=== PATIENT | female | born 1955 | race Caucasian/White ===

== ENCOUNTER 2017-11-29 10:32 | Inpatient (IN) | payer BC ==
[2017-11-29] MEDS ORDERED: Acetaminophen TAB* 325 MG PO PRN (13:24)
[2017-11-29] MEDS ORDERED: Senna TAB PO PRN (13:24)
[2017-11-29] MEDS ORDERED: Magnesium Hydroxide LIQ* 30 ML UDC PO PRN (13:24)
[2017-11-29] MEDS ORDERED: Acetaminop/Codeine 30 MG TAB* 1 TAB (300 MG/30 MG) PO PRN (13:33)
[2017-11-29] MEDS: Warfarin TAB(*) 3 MG PO SCH (17:12)
--- NOTE | 2017-11-29 19:00 | HP ---
ADMISSION HISTORY AND PHYSICAL: DATE OF ADMISSION: 11/29/17 REASON FOR ADMISSION: The patient is status post drainage of an intracranial arachnoid cyst. HISTORY OF ILLNESS: Katerine Gonzalez is a 62-year-old female. She has a medical history significant for breast cancer, which was diagnosed 20 years ago. She had a right mastectomy as a result. Apparently, during that time, she also developed a DVT and has been on chronic Coumadin therapy ever since. The patient reports that she had roughly a year and a half of balance difficulties. The patient never saw a doctor for it. Her brother called her in September of this year. He felt like her speech was slurred and advised her to see her doctor. The patient went to her primary care provider who ordered an MRI of her brain. They had a small focus of elevated FLAIR signal within the left frontal foster radiata, which was new. The patient was referred to Dr. Bailey. Dr. Bailey sent her to a neurosurgeon in [place]. She had a large midline cerebellar arachnoid cyst. She saw the physician in [place], Dr. Liban Grace. It was decided that the cyst should be drained. The patient was admitted to [facility] on November 23. She underwent a suboccipital craniotomy with a fenestration of the arachnoid cyst. Postoperatively, she had severe headaches, but this gradually improved. She worked with Physical Therapy. Her balance disorder was getting better, but she was felt to have physical therapy, speech therapy and occupational therapy needs. She is now being admitted for inpatient rehab so that she may return to independent living. PAST MEDICAL HISTORY: Significant for the aforementioned breast cancer. Right mastectomy with LN dissection. She had brain mets from the breast cancer, and had a previous craniotomy with removal of mets. DVT. 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 Bone marrow transplant CURRENT MEDICATIONS: Include: 1. Lovenox. 2. Coumadin. 3. She is on Tylenol with Codeine for headaches. 4. Tylenol. ALLERGIES: To PENICILLIN, although it is unclear what the allergic reaction is. SOCIAL HISTORY: She is a nonsmoker, nondrinker. She lives by herself in a ranch style house with 3 steps to enter. Her laundry is on the basement floor. She was completely independent prior to admission, although she was using a walker to walk long distances because of her balance difficulties. 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 PHYSICAL EXAMINATION VITAL SIGNS: The patient's temperature is 97.5, blood pressure is 114/73, pulse 89, respirations 16. HEENT: She has a wound on the back of her head, which appears to be clean, NECK: Supple. LUNGS: Sound clear to auscultation bilaterally. HEART: Sounds were regular. S1, and S2 were audible. ABDOMEN: Soft and nontender. EXTREMITIES: Peripheral pulses are intact. NEUROLOGIC: She is awake, alert, oriented. She has a left footdrop, which known predates her surgery or illness. Muscle strength otherwise is 5/5. Her finger-to- nose testing, she was able to do quite well. The patient's speech was slightly slurred, but she was able to get her thoughts across without any difficulty. FUNCTIONAL EXAM: The patient transfers with contact guard. ASSESSMENT: Status post drainage of a cerebellar arachnoid cyst. PLAN: Integrate her into a comprehensive and therapeutic rehab program with the following goals: 1. Physical Therapy will work with the patient, they are going to work on functional transfer training and ambulation training with a walker. 2. Occupational Therapy will see the patient, work on her activities of daily living including toileting and toilet transfers. 3. Speech Therapy will see the patient, they are going to work on her speech difficulties as well as her swallowing. For now, we will continue the recommendations of a mechanical soft diet with thin liquids. 4. Coumadin for DVT prophylaxis. 5. Tylenol No.3 for headaches. 6. Her bowels will be regulated. 7. immigration services officer will be closely involved to make sure that any services and equipment that the patient requires are in place prior to discharge. 8. Family training as appropriate. 9. Home with appropriate services. ESTIMATED LENGTH OF STAY: Is 7 to 10 days. [id number]/[facility] #: [id number] [place]OLA
[2017-11-29] MEDS: Docusate CAP* 100 MG PO SCH (19:49)
[2017-11-29] MEDS: Enoxaparin(*) 30 MG/0.3 ML SYR SUBCUT SCH (19:50)
[2017-11-30 06:49] LABS: ABS Basophils 0.1 10^3/ul (0-0.2); ABS Eosinophils 0.5 10^3/ul (0-0.6); ABS Lymphocytes 1.8 10^3/ul (1.0-4.8); ABS Monocytes 0.8 10^3/ul (0-0.8); ABS Neutrophils 5.6 10^3/ul (1.5-7.7); ABS Nucleated RBC 0 10^3/ul; Eosinophil % 5.9 % (0-6); Hematocrit 35 % (35-47); Lymphocyte % 20.2 % (25-47); Mean Corpuscular HGB Conc 34 g/dl (31-36); Mean Corpuscular Hemoglobin 32 pg (27-31); Mean Corpuscular Volume 93 fL (80-97); Mean Platelet Volume 6.7 um3 (7.4-10.4); Nucleated Red Blood Cells % 0.1; Platelet Count 356 10^3/ul (150-450); Red Blood Count 3.77 10^6/ul (4.0-5.4); Red Cell Distribution Width 14 % (10.5-15); White Blood Count 8.8 10^3/ul (3.5-10.8)
[2017-11-30] MEDS: Enoxaparin(*) 30 MG/0.3 ML SYR SUBCUT SCH ×2 (08:16→20:55)
[2017-11-30] MEDS: Docusate CAP* 100 MG PO SCH ×2 (08:16→20:54)
--- NOTE | 2017-11-30 12:41 | PMRUTEAM ---
PMRU: Team Meeting Current Status: Nursing: Current Status Skin Deviations [Generalized] Rash Skin Deviations [Midline Neck] Incision Skin Deviation Description [ unchanged Generalized] Skin Deviation Description [ hair was sewn into the incision with suturing. Midline Neck] Drain Type [Midline Neck] None Bladder Current Status continent walking to the bathroom with walker and 1 assist Bowel Current Status BM medication, walking to the bathroom with walker and 1 assist Nutrition Current Status meats nutritional needs , aspiration precautions in place. mechanicaly ground . Medication Current Status complient Physical Therapy: Current Status Bed Mobility Assistance Independent Transfer Moblility Assistance contact guard Ambulation Assistance contact guard with rolling walker 200ft OCCUPATIONAL THERAPY: CURRENT STATUS - upper body dressing min A; lower body dressing min A; bathing min A; toileting min A; toilet transfer contact guard; shower transfer contact guard; eating independent. SPEECH THERAPY: Mild dysarthia and dysphagia on mechanical ground and thin liquids. Rec Therapy: Current Status Summary of Assessment and Pt. recently admitted, was in the room with her Clinical Impression cousin. RT services introduced. Pt. spoke of interests/hobbies and identified with involvement in them prior to admission. Pt. was open to activities on the unit and asked for word jumble puzzles which were provided to her. Treatment Goals Pt. will engage in leisure activities while on the unit. Treatment Plan Provide RT services and encourage involvement. Social Work: Current Status Discharge Plan return home with home care svs and family support Potential for Family Training Mahi OCAMPO's cousins are assisting her Anticipated Discharge Home Destination Discharge With Home care svs and family support Goals: Nursing: Goals Bladder Goal independent Bowel Goal independent Nutrition Goal regular texture diet. independent with preparation with family support- cousin. Medication Goal independent @ home. PHYSICAL THERAPY GOALS: independent bed mobility, transfers and ambulation using rolling walker 300ft. Up/down flight of stairs with 1 rail. OCCUPATIONAL THERAPY GOALS: independent dressing, toileting, bathing, showering without adaptive equipment. Speech: Goals Speech Goal 1 Swallowing Goal 1 Comments Long-Term Goal: Patient will tolerate least restrictive diet consistencies w/ no stasis or clinical s/s aspiration Short Term Goals: 1) Pt will use compensatory strategies to tolerateregular diet consistency w/ no difficulty or clinical s/s aspiration. 2) Pt will use compensatory strategies to tolerate mechanical ground consistency w/ no difficulty or clinical s/s aspiration. 3) Pt will use compensatory strategies to tolerate thin liquid w/ no clinical s/s aspiration. Social Work: Goals Discharge Plan return home with home care svs and family support Potential for Family Training Mahi OCAMPO's cousins are assisting her Anticipated Discharge Home Destination Discharge With Home care svs and family support Care Plan: Care Plan DVT Prophylaxis- Improve/Maintain Start: 11/29/17 13:23 Freq: DAILY@1200 Status: Active Target: Protocol: Activity Type Activity Date Activity User E-Sign Co-Sign Detail Recorded Client Recorded Date Recorded By Document 11/30/17 08:00 [id number] 11/30/17 11:12 [id number] 11/30/17 08:00 PMRU Outcome: DVT Prophylaxis Outcome/Goals Remains Free of DVT Complies with DVT Prophylaxis /Treatment Progression Toward Outcome/Goals Progressing Education-Improve/Maintain Start: 11/29/17 13:23 Freq: DAILY@1200 Status: Active Target: Protocol: Activity Type Activity Date Activity User E-Sign Co-Sign Detail Recorded Client Recorded Date Recorded By Document 11/30/17 08:00 [id number] 11/30/17 11:12 [id number] 11/30/17 08:00 PMRU Outcome: Education Outcome/Goals Demonstrate/ Verbalize Understanding of Written Discharge Instructions Demonstrates Skills Progression Toward Outcome/Goals Progressing /GI-Improve/Maintain Start: 11/29/17 13:23 Freq: DAILY@1200 Status: Active Target: Protocol: Activity Type Activity Date Activity User E-Sign Co-Sign Detail Recorded Client Recorded Date Recorded By Document 11/30/17 08:00 [id number] 11/30/17 11:12 [id number] 11/30/17 08:00 PMRU Outcome: Genitourinary/ Gastrointestinal Genitourinary- Outcome/Goals Maintain/ Achieve Urinary Continence Maintain/ Achieve Adequate Urinary Output Gastrointestinal-Outcome/Goals Maintain/ Achieve Bowel Regularity in Accordance with Pt's Baseline Remain Free of Emesis Progression Toward Outcome/Goals - Progressing Medication Administration Start: 11/29/17 13:23 Freq: DAILY@1200 Status: Active Target: Protocol: Activity Type Activity Date Activity User E-Sign Co-Sign Detail Recorded Client Recorded Date Recorded By Document 11/30/17 08:00 [id number] 11/30/17 11:12 [id number] 11/30/17 08:00 PMRU Outcome: Medication Administration Assess Patient Knowledge/Teach Med Yes Education for all Meds Outcome/Goals Patient Independent with Medication Administration at Home Progression Towards Outcome/Goals Progressing Is Patient Going Home on Lovenox? No Neurological- Improve/Maintain Start: 11/29/17 13:23 Freq: DAILY@1200 Status: Active Target: Protocol: Activity Type Activity Date Activity User E-Sign Co-Sign Detail Recorded Client Recorded Date Recorded By Document 11/30/17 08:00 [id number] 11/30/17 11:12 [id number] 11/30/17 08:00 PMRU Outcome: Neurological Weakness/Aphasia Weakness Outcome/Goals Improve Neurological Status Progression Toward Outcome/Goals Progressing Pain/Comfort- Improve/Maintain Start: 11/29/17 13:23 Freq: DAILY@1200 Status: Active Target: Protocol: Activity Type Activity Date Activity User E-Sign Co-Sign Detail Recorded Client Recorded Date Recorded By Document 11/30/17 08:00 [id number] [email or web address] 11/30/17 11:12 [id number] 11/30/17 08:00 PMRU Outcome: Pain/Comfort Outcome/Goals Demonstrates Knowledge and Use of Available Comfort Measures Progression Toward Outcome/Goals Progressing Safety- Improve/Maintain Start: 11/29/17 13:23 Freq: DAILY@1200 Status: Active Target: Protocol: Activity Type Activity Date Activity User E-Sign Co-Sign Detail Recorded Client Recorded Date Recorded By Document 11/30/17 08:00 [id number] 11/30/17 11:12 [id number] 11/30/17 08:00 PMRU Outcome: Safety Outcome/Goals Remain Free of Injury or Harm Cooperates with Safety Measures for Least Restrictive Environment Progression Toward Outcome/Goals Progressing Skin- Improve/Maintain Start: 11/29/17 13:23 Freq: DAILY@1200 Status: Active Target: Protocol: Activity Type Activity Date Activity User E-Sign Co-Sign Detail Recorded Client Recorded Date Recorded By Document 11/30/17 08:00 [id number] 11/30/17 11:12 [id number] 11/30/17 08:00 PMRU Outcome: Skin Skin Risk Level Medium Outcome/Goals Maintain/ Improve Skin Intergrity Progression Toward Outcome/Goals Progressing Medicine Note: Length of Stay: [1 week] Anticipated Discharge Destination: Home Tentative Discharge Date: [12/07/17] Discharged to: [home]
--- NOTE | 2017-11-30 13:27 | PN ---
Progress Note Date of Service: 11/30/17 Note: MARAH GOODE was visited. Nursing and therapy notes read and reviewed. Discussed in team meeting for interdisciplinary plan of care. No chest pain, shortness of breath or abdominal pain. Nursing and OT concerned that hair is within suture line. Rash she has had last 5 days or so does not bother her and she thinks it is continuing to improve. Current Medications: Active Medications Generic Name Dose Route Start Last Admin Trade Name Freq PRN Reason Stop Dose Admin Acetaminophen 650 mg 11/29/17 13:24 Tylenol Tab* PO Q6H PRN FEVER/PAIN Acetaminophen/Codeine Phosphate 1 tab 11/29/17 13:33 Tylenol/Codeine 30 Mg Tab* PO Q6H PRN HEADACHE/PAIN Chlorpheniramine Maleate 4 mg 11/29/17 13:31 Chlortrimeton Tab* PO Q6H PRN Allergy Symptoms Docusate Sodium 100 mg 11/29/17 21:00 11/30/17 08:16 Colace Cap* PO 100 mg BID GIULIANA Administration Enoxaparin Sodium 30 mg 11/29/17 21:00 11/30/17 08:16 Lovenox(*) SUBCUT 30 mg Q12H GIULIANA Administration Magnesium Hydroxide 30 ml 11/29/17 13:24 Milk Of Magnesia Liq* PO Q6H PRN CONSTIPATION Senna 2 tab 11/29/17 13:24 Senokot Tab* PO BEDTIME PRN CONSTIPATION Warfarin Sodium 3 mg 11/29/17 17:00 11/29/17 17:12 Coumadin Tab(*) PO 3 mg DAILY@1700 GIULIANA Administration Protocol Vital Signs: Vital Signs Temp Pulse Resp BP Pulse Ox 98.7 F 97 20 112/63 98 11/30/17 06:25 11/30/17 06:25 11/30/17 08:00 11/30/17 06:25 11/30/17 08:00 Lab Results: Laboratory Results - last 24 hr 11/30/17 11/30/17 11/30/17 06:31 06:31 06:31 WBC 8.8 RBC 3.77 L Hgb 12.0 Hct 35 MCV 93 MCH 32 H MCHC 34 RDW 14 Plt Count 356 MPV 6.7 L Neut % (Auto) 64.3 Lymph % (Auto) 20.2 L [place] % (Auto) 9.0 H Eos % (Auto) 5.9 Baso % (Auto) 0.6 Absolute Neuts (auto) 5.6 Absolute Lymphs (auto) 1.8 Absolute Monos (auto) 0.8 Absolute Eos (auto) 0.5 Absolute Basos (auto) 0.1 Absolute Nucleated RBC 0 Nucleated RBC % 0.1 INR (Anticoag Therapy) 1.00 Sodium 137 L Potassium 4.2 Chloride 100 L Carbon Dioxide 32 Anion Gap 5 BUN 26 H Creatinine 0.73 Est GFR ( Amer) 104.2 Est GFR (Non-Af Amer) 81.0 BUN/Creatinine Ratio 35.6 H Glucose 96 Calcium 9.1 Total Bilirubin 0.40 AST 16 ALT 28 Alkaline Phosphatase 85 Total Protein 6.3 L Albumin 3.5 Globulin 2.8 Albumin/Globulin Ratio 1.3 Exam: GEN: no acute distress. alert and appropriate SKIN: diffuse dull macular rash with coalesced patches on back, axilla, groin. Incision on posterior head/neck is clean, dry and intact. It appear that incision includes some of the roots of hair. LUNGS: clear to auscultation bilaterally CV: regular rate and rhythm ABD: + bowel sounds, soft, non-tender, non-distended EXT: no edema NEURO: motor 5/5 bue and ble except 4/5 left dorsiflexion (chronic) Assessment/Plan: 62yo woman s/p suboccipital craniotomy with fenestration of cerebellar arachnoid cyst with subsequent impaired balance, dysarthria and dysphagia #s/p suboccipital craniotomy: f/u with neurosurgery. PT/OT/speech #h/o DVT on chronic coumadin: lovenox 30mg bid until INR therapeutic. On home dose since d/c. INR daily. #Rash present on admission: This looks like a drug rash. It appears to be improving with time. follow clinically. #Headaches: has tylenol and tylenol #3 prn #Advanced directives: full code #Estimated LOS: met with team today. Tentative discharge 12/07/17. 11/30/17 13:27
[2017-11-30] MEDS: Warfarin TAB(*) 3 MG PO SCH (16:52)
[2017-11-30] MEDS: Chlorpheniramine Maleate TAB* 4 MG PO PRN (19:22)
[2017-11-30] MEDS: Hydrocortisone 1% CREAM* 30 GM TUBE TOPICAL PRN (20:07)
[2017-12-01] MEDS: Chlorpheniramine Maleate TAB* 4 MG PO PRN (02:49)
[2017-12-01] MEDS: Hydrocortisone 1% CREAM* 30 GM TUBE TOPICAL PRN (02:49)
[2017-12-01 06:42] LABS: INR 1.09 (0.77-1.02)
[2017-12-01 07:47] LABS: ABS Basophils 0.1 10^3/ul (0-0.2); ABS Eosinophils 0.2 10^3/ul (0-0.6); ABS Lymphocytes 0.3 10^3/ul (1.0-4.8); ABS Monocytes 0.3 10^3/ul (0-0.8); ABS Neutrophils 18.3 10^3/ul (1.5-7.7); ABS Nucleated RBC 0 10^3/ul; Eosinophil % 1.2 % (0-6); Hematocrit 43 % (35-47); Hemoglobin 14.5 g/dl (12.0-16.0); Lymphocyte % 1.5 % (25-47); Mean Corpuscular HGB Conc 34 g/dl (31-36); Mean Corpuscular Hemoglobin 32 pg (27-31); Mean Corpuscular Volume 93 fL (80-97); Mean Platelet Volume 7.5 um3 (7.4-10.4); Nucleated Red Blood Cells % 0; Platelet Count 408 10^3/ul (150-450); Red Blood Count 4.58 10^6/ul (4.0-5.4); Red Cell Distribution Width 14 % (10.5-15); White Blood Count 19.2 10^3/ul (3.5-10.8)
--- NOTE | 2017-12-01 08:09 | RAD ---
INDICATION: Fever COMPARISON: Most recent comparison chest x-rays dated February 04, 2017 TECHNIQUE: PA and lateral views of the chest were obtained. FINDINGS: Postsurgical changes include right mastectomy and surgical clips overlying the right axilla The heart and mediastinum are normal in size and contour. Similar to the prior chest x-ray there is the appearance of chronic obstructive pulmonary disease. The lungs are otherwise grossly clear. There is no evidence of large pleural effusion. Visualized bones are normal for the patient's age. There is no radiographic evidence of free air beneath the diaphragm IMPRESSION: No radiographic evidence of acute cardiopulmonary disease.
[2017-12-01 08:13] LABS: EGFR Non-African American 52.7 (>60)
[2017-12-01] MEDS ORDERED: NS 0.9% 1000 ML* 2,000 ML IV ONE (08:16)
[2017-12-01] MEDS ORDERED: Vancomycin(*) 1,500 MG in NS 0.9% 250 ML* 250 ML IVPB ONE (08:21)
[2017-12-01] MEDS ORDERED: diPHENhydraMINE PO* 25 MG PO PRN (08:47)
--- NOTE | 2017-12-01 08:49 | PN ---
Progress Note Date of Service: 12/01/17 Note: KATERINE GOODE was visited. Nursing notes read and reviewed. I was called a little after 7am this morning to inform me that overnight Katerine had a fever, was intermittently tachycardic and may have had a 3 second seizure while on the commode urinating. Additional work-up was ordered and the hospitalist service was consulted. The patient herself feels "better" right now that earlier. She was dizzy getting back to bed after going to CXR. She offers no complaints at this moment. Last night her rash became itchy and felt better with topical hydrocortisone. No chest pain, shortness of breath or abdominal pain. She has not been drinking much. Current Medications: Active Medications Generic Name Dose Route Start Last Admin Trade Name Freq PRN Reason Stop Dose Admin Acetaminophen 650 mg 11/29/17 13:24 12/01/17 05:23 Tylenol Tab* PO 650 mg Q6H PRN Administration FEVER/PAIN Acetaminophen/Codeine Phosphate 1 tab 11/29/17 13:33 11/30/17 14:09 Tylenol/Codeine 30 Mg Tab* PO 1 tab Q6H PRN Administration HEADACHE/PAIN Diphenhydramine HCl 25 mg 12/01/17 08:47 Benadryl Po* PO Q4H PRN itching rash Docusate Sodium 100 mg 11/29/17 21:00 11/30/17 20:54 Colace Cap* PO 100 mg BID GIULIANA Administration Enoxaparin Sodium 30 mg 11/29/17 21:00 11/30/17 20:55 Lovenox(*) SUBCUT 30 mg Q12H GIULIANA Administration Hydrocortisone 1 applic 11/30/17 19:30 12/01/17 02:49 Hytone Cream 1%* TOPICAL 1 applic QID PRN Administration itching rash Sodium Chloride 2,000 mls @ 1,000 mls/hr 12/01/17 08:16 Ns 0.9% 1000 Ml* IV 12/01/17 10:15 .PER RATE ONE Ceftriaxone Sodium 1 gm/ 50 mls @ 200 mls/hr 12/01/17 09:00 Sodium Chloride IVPB Q24H GIULIANA Vancomycin HCl 1,500 mg/ 250 mls @ 166.667 mls/hr 12/01/17 08:21 Sodium Chloride IVPB 12/01/17 09:50 ONCE ONE Magnesium Hydroxide 30 ml 11/29/17 13:24 Milk Of Magnesia Liq* PO Q6H PRN CONSTIPATION Senna 2 tab 11/29/17 13:24 Senokot Tab* PO BEDTIME PRN CONSTIPATION Warfarin Sodium 3 mg 11/29/17 17:00 11/30/17 16:52 Coumadin Tab(*) PO 3 mg DAILY@1700 GIULIANA Administration Protocol Vital Signs: Vital Signs Temp Pulse Resp BP Pulse Ox 100.1 F 85 20 106/68 97 12/01/17 06:05 12/01/17 05:30 12/01/17 06:05 12/01/17 05:04 12/01/17 05:04 Orthostatic vital signs this morning: supine 106/67 and 99; sitting 94/64 and 111; standing 63/33 and 174 Lab Results: Laboratory Results - last 24 hr 12/01/17 12/01/17 12/01/17 06:17 06:17 07:39 WBC 19.2 H RBC 4.58 Hgb 14.5 Hct 43 MCV 93 MCH 32 H MCHC 34 RDW 14 Plt Count 408 MPV 7.5 Neut % (Auto) 95.5 H Lymph % (Auto) 1.5 L [place] % (Auto) 1.5 Eos % (Auto) 1.2 Baso % (Auto) 0.3 Absolute Neuts (auto) 18.3 H Absolute Lymphs (auto) 0.3 L Absolute Monos (auto) 0.3 Absolute Eos (auto) 0.2 Absolute Basos (auto) 0.1 Absolute Nucleated RBC 0 Nucleated RBC % 0 INR (Anticoag Therapy) 1.09 H Sodium 130 L Potassium 4.3 Chloride 97 L Carbon Dioxide 18 L Anion Gap 15 H BUN 41 H Creatinine 1.06 H Est GFR ( Amer) 67.8 Est GFR (Non-Af Amer) 52.7 BUN/Creatinine Ratio 38.7 H Glucose 174 H Lactic Acid Calcium 8.6 Total Bilirubin 0.50 AST 19 ALT 23 Alkaline Phosphatase 84 Total Protein 6.2 L Albumin 3.4 Globulin 2.8 Albumin/Globulin Ratio 1.2 12/01/17 07:39 WBC RBC Hgb Hct MCV MCH MCHC RDW Plt Count MPV Neut % (Auto) Lymph % (Auto) [place] % (Auto) Eos % (Auto) Baso % (Auto) Absolute Neuts (auto) Absolute Lymphs (auto) Absolute Monos (auto) Absolute Eos (auto) Absolute Basos (auto) Absolute Nucleated RBC Nucleated RBC % INR (Anticoag Therapy) Sodium Potassium Chloride Carbon Dioxide Anion Gap BUN Creatinine Est GFR ( Amer) Est GFR (Non-Af Amer) BUN/Creatinine Ratio Glucose Lactic Acid 4.2 H* Calcium Total Bilirubin AST ALT Alkaline Phosphatase Total Protein Albumin Globulin Albumin/Globulin Ratio Exam: GEN: no acute distress. alert and appropriate SKIN: diffuse erythematous macular rash with coalesced patches on back which is higher up and more diffuse than yesterday also including axilla, arms, legs groin and abdomen. It is a brighter red than yesterday and the day before as well. Incision on posterior head/neck is clean, dry and intact. LUNGS: clear to auscultation bilaterally CV: tachy in 110's and regular rhythm ABD: + bowel sounds, soft, non-tender, non-distended EXT: no edema NEURO: motor 5/5 bue and ble except 4/5 left dorsiflexion (chronic) Chest x-ray 12/01/17 - no acute pulmonary findings EKG 12/01/17 - normal sinus rhythm Assessment/Plan: 62yo woman s/p suboccipital craniotomy with fenestration of cerebellar arachnoid cyst with subsequent impaired balance, dysarthria and dysphagia. Today she appears to have sepsis. #Sepsis: The hospitalist service has already ordered IV antibiotic and IVF. Blood cultures drawn x2. No urine has been collected yet. She will need closer monitoring. #s/p suboccipital craniotomy: f/u with neurosurgery. PT/OT/speech will need to be reordered when she is medically stable and not showing this degree of orthostasis. #h/o DVT on chronic coumadin: lovenox 30mg bid until INR therapeutic. On home dose of coumadin since d/c from [place]. INR daily. #Rash present on admission: This looks like a drug rash but worse today. I changed the antihistamine to benadryl. Hydrocortisone prn. #Headaches: has tylenol and tylenol #3 prn #Advanced directives: full code #Dispo: admit to hospitalist service in hospital. 12/01/17 09:04
[2017-12-01] MEDS ORDERED: cefTRIAXone(*) 1 GM in NS 0.9% 50 ML* 50 ML IVPB SCH (09:00)
[2017-12-01] MEDS: Docusate CAP* 100 MG PO SCH (10:02)
[2017-12-01] MEDS: Enoxaparin(*) 30 MG/0.3 ML SYR SUBCUT SCH (10:02)
[2017-12-01 10:13] VITALS: BP 106/67
--- NOTE | 2017-12-01 10:34 | DS ---
REHABILITATION DISCHARGE: DATE OF ADMISSION: 11/29/17 DATE OF DISCHARGE: 12/01/17 REASON FOR ADMISSION: Status post suboccipital craniotomy and fenestration of intracranial arachnoid cyst. HISTORY OF PRESENT ILLNESS: For details of her acute hospitalization leading up to her admission, please see the note dictated by Dr. Newby on 11/29/17. HOSPITAL COURSE: During her time on the [facility], initially she did well in her stay of rehabilitation. Her diet was put on mechanical soft with thin liquids. She seemed to tolerate this well. 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 While urinating on the bedside commode, she had 3 seconds of decreased level of consciousness with questionable seizure. She reported having a seizure 20yrs ago after her diagnosis of breast cancer with a brain metastasis but not being on any chronic anti-seizure medication. Orthostatics were positive today. With standing her SBP was in the 60's and her HR 170's. She was evaluated for sepsis and her lactic acid level was 4.2. White count was up to 19 where the previous day was 8.8. Chest x-ray was negative for an acute process. Blood cultures were drawn. Urinalysis was ordered but not yet collected. EKG showed normal sinus rhythm. Hospitalist service was consulted. IV fluids and antibiotics were ordered. It was decided she would need additional work up to determine a source of infection and would benefit from additional monitoring. Therefore, she will be discharged to the [facility]. She was admitted with a rash to the [facility], which was started 3 to 4 days earlier when she was at the [facility] It seemed to improve during her first day, but during the evening when she became more febrile, became more itchy and red and bothersome. She started on Benadryl instead of Chlor- Trimeton, which she had previously been on and topical hydrocortisone seemed to help. MEDICATIONS: 1. Colace 100 mg b.i.d. 2. Coumadin 3 mg q.p.m. which just started 2 days ago at her admission. She was on this chronically for history of DVT. 3. Lovenox 30 mg subcu q.12 hours. 4. Rocephin and vancomycin have both been ordered, but I do not believe they have been administered yet. 5. Benadryl 25 mg q.4 hours p.r.n. rash. 6. Hydrocortisone topically q.i.d. p.r.n. 7. Senokot 2 tablets p.o. q.h.s. p.r.n. 8. Tylenol 650 mg q.6 hours p.r.n. 9. Tylenol with Codeine 30 mg q.6 hours p.r.n. headache or pain. DISCHARGE DIAGNOSES: 1. Status post suboccipital craniotomy for arachnoid cyst. 2. History of metastatic breast cancer, status post resection of brain metastasis. 3. Question seizure disorder. 4. History of DVT. 5. Orthostatic hypotension. 6. Rash. 7. Sepsis DISCHARGE CONDITION: Guarded. DISCHARGE DISPOSITION: She will be discharged to the hospitalist service. [id number]/[facility] #: [id number] [place]OLA
== END 2017-12-06 15:00 | disposition short-term general hospital (02) | DRG 862 ==
LOC: UNDOADMIN 10:32 → PMRU 10:32 → UNDODISIN 12-01 10:04
PROVIDERS: ADMIT Physical Medicine & Rehabilitation; ATTEND Physical Medicine & Rehabilitation
PROC: F07Z5ZZ Bed Mobility Treatment (ICD-10-PCS; principal; 2017-11-29)
PROC: F07Z9ZZ Gait Training/Functional Ambulation Treatment (ICD-10-PCS; 2017-11-29)
PROC: F07Z8ZZ Transfer Training Treatment (ICD-10-PCS; 2017-11-29)
PROC: F08Z0ZZ Bathing/Showering Techniques Treatment (ICD-10-PCS; 2017-11-29)
PROC: F08Z1ZZ Dressing Techniques Treatment (ICD-10-PCS; 2017-11-29)
PROC: F08Z3ZZ Feeding/Eating Treatment (ICD-10-PCS; 2017-11-29)
DX: Z48.89 Encounter for other specified surgical aftercare (principal); A41.9 Sepsis, unspecified organism; R26.89 Other abnormalities of gait and mobility; R13.19 Other dysphagia; R47.1 Dysarthria and anarthria; G40.909 Epilepsy, unspecified, not intractable, without status epilepticus; I95.1 Orthostatic hypotension; R21 Rash and other nonspecific skin eruption; Z85.3 Personal history of malignant neoplasm of breast; Z85.841 Personal history of malignant neoplasm of brain; Z86.718 Personal history of other venous thrombosis and embolism; Z79.01 Long term (current) use of anticoagulants; Z79.1 Long term (current) use of non-steroidal anti-inflammatories (NSAID); Z79.899 Other long term (current) drug therapy; Z88.0 Allergy status to penicillin
CPT/HCPCS: 36415; 71046; 80053; 83605; 85025; 85610; 86140; 87040; 93005; 95816; A9270-GY; J0696; J1650; J3370

== ENCOUNTER 2017-12-01 09:51 | Inpatient (IN) | payer BC ==
[2017-12-01] MEDS ORDERED: Al Hydrox/Mg Hydrox/Simet LIQ* 30 ML UDC PO PRN (10:18)
[2017-12-01] MEDS ORDERED: Acetaminophen TAB* 325 MG PO PRN (10:18)
[2017-12-01] MEDS ORDERED: Acetaminop/Codeine 30 MG TAB* 1 TAB (300 MG/30 MG) PO PRN (10:24)
[2017-12-01] MEDS ORDERED: NS 0.9% 1000 ML* 1,000 ML IV SCH (10:30)
[2017-12-01] MEDS: cefTRIAXone(*) 1 GM in NS 0.9% 50 ML* 50 ML IVPB SCH (12:02)
--- NOTE | 2017-12-01 12:04 | HP ---
HISTORY AND PHYSICAL: ADDENDUM: Please also note that patient had an autologous bone marrow transplantation in 1996 which was likely related to patient's breast cancer treatment, although further details are unknown to me and the patient. [id number]/[facility] #: [id number] MTDD
--- NOTE | 2017-12-01 12:12 | HP ---
CC: Dr. Chelsey Srinivasan; Dr. Newby; Dr. Norman; Dr. Bailey; Dr. Grace from Neurosurgery Department at [facility] HISTORY AND PHYSICAL: DATE OF ADMISSION TO ACUTE MEDICAL FLOOR AND TRANSFER FROM RU: 12/01/17 PRIMARY CARE PROVIDER: Chelsey Srinivasan MD CHIEF COMPLAINT: Fever. HISTORY OF PRESENT ILLNESS: Katerine Gonzalez is a 62-year-old female with history of recent surgery of large arachnoid cyst resection from supracerebellar region performed by Dr. Grace with assistance of Dr. Bailey on 11/21/17, was transferred to our facility physiotherapy unit on 11/29/17 for postoperative PT and Speech Therapy evaluation. The patient apparently has been having fevers overnight up to 101 degrees. She has no other complaints, but she was dizzy when standing up and she was noted to be have orthostatic hypotension. At that point, Dr. Norman asked me to transfer the patient to inpatient floor for management of the patient's systemic inflammatory response syndrome. So far, there is no source of infection identified. Postoperatively in PMRU Unit, the patient has been doing well and ambulating with a rolling walker with still slight unsteady gait. The patient has some speech latency noted for which she is receiving speech therapy. She had had a rash and that was noted at [facility] already, which had been ongoing for at least 7 days now. The patient stated that it became "itchy" just recently. The patient is being once again transferred from physiotherapy unit to medical unit for further investigation of systemic inflammatory response syndrome and fever. PAST MEDICAL HISTORY: 1. History of status post arachnoid cyst resection from cerebellar region performed on 11/21/[address] Grace from [facility]. 2. History of mastectomy in 1995 on the right side. The patient was also noted to have metastasis in 1998 and had a brain mass resected at that time. 3. Diagnosis of brain mets. The patient had one onset seizure due to the brain mets. She stated that she never was on seizure medications afterwards and never had seizures afterwards. As a result of the patient's brain mass resection, she has left-sided footdrop ever since. 4. History of DVT in 1998, on Coumadin ever since. 5. Status post appendectomy. CURRENT MEDICATIONS: Include: 1. One dose of vancomycin at 1500 mg the patient is to receive intravenously, but I believe it has not been done yet. 2. Ceftriaxone 1 g IV every 24 hours. 3. Colace 100 mg b.i.d. 4. Coumadin 3 mg daily, was originally started on 11/29/17. 5. Lovenox 30 mg subcutaneously every 12 hours. 6. Benadryl on a p.r.n. basis. 7. Hydrocortisone cream 1% four times daily p.r.n. itching. 8. Milk of magnesia every 6 hours p.r.n. 9. Senokot 2 tablets at bedtime for constipation. 10. Tylenol on a p.r.n. basis. 11. Tylenol with Codeine 30 mg p.r.n. headache. ALLERGIES: Include PENICILLIN caused rash. FAMILY HISTORY: Notable for mother who just a month ago of "old age." She had been living with the patient up to her . Father with history of diabetes. SOCIAL HISTORY: The patient denies any tobacco, alcohol, or drug use. She lives alone. Her healthcare proxy is her brother, Kelton, who is in [place]. Currently, the patient's cousin is taking care of the patient's dog who was left at her home. REVIEW OF SYSTEMS: Please see history of present illness. Please note that the patient is rather a poor historian. She is not really sure how long she has had rash, but became itchy 2 days ago. She stated that she has had this rash that appeared at some point postoperatively at [facility]. She noted fevers within the past 12 hours and she is aware of usually having "low temperatures" at baseline. The patient also complained of feeling dizzy when standing up and she was noted to be orthostatic. Apparently, she felt dizzy when standing up for the past couple of days. She denies any dysuria or burning with urination. She denies any shortness of breath, cough, or chest pain. All the remaining 12 systems were reviewed with the patient and were otherwise negative. Please note that the patient has chronic left-sided footdrop due to her brain metastases and surgery in 1998. PHYSICAL EXAMINATION GENERAL: This is a very pleasant 62-year-old female who is in no acute distress. The patient is alert and oriented x3 with occasional poor recall. Her speech is rather slow. VITAL SIGNS: Blood pressure of 106/68, heart rate of 85 and regular, respiratory rate 16, oxygen saturation 97% on room air, temperature of 100.1 and maximum temperature is 101.5 overnight. HEENT: Head is atraumatic, normocephalic. NECK: There is an incision of approximately 8 cm at the midline at the back of the patient's neck. There is slight erythema noted near the sutures area. There is no fluctuation. No dehiscence. No discharge noted and no cellulitis. Otherwise, neck evaluation, supple. No bruits. No adenopathy bilaterally. RESPIRATORY: Clear to auscultation bilaterally. CARDIOVASCULAR: Regular rate and rhythm with no murmur. ABDOMEN: Protuberant, soft, nontender. Bowel sounds present in all 4 quadrants. EXTREMITIES: There is trace bilateral pedal edema. Pulses +2 bilaterally. There is no clubbing, cyanosis. NEUROLOGIC: Speech is fluent, rather slow. Cranial nerves II through XII are grossly intact. Motor strength is 5/5 bilaterally apart from exception of the left footdrop that is chronic and present. SKIN: As above mentioned. Midline incision in the back of the patient's neck as mentioned above. The patient also has confluent erythema, slightly raised, and rash surrounding mostly the lower back, spreading to the upper back between her thighs and lower abdomen. PSYCHIATRIC: Oriented x3 with no evidence of anxiety or depression. DIAGNOSTIC STUDIES/LABORATORY DATA: White blood cell count of 19.2, hemoglobin of 14.5, hematocrit of 43, and platelets of 408. INR was 1.09. Sodium was 130, potassium 4.3, chloride 97, carbon dioxide 18, anion gap of 15, BUN 41, creatinine 1.06. Liver function tests were unremarkable. C-reactive protein of 69. Lactic acid of 4.2. Urinalysis is pending at the time of dictation. Portable chest x-ray was read by the radiologist as "no radiographic evidence of acute cardiopulmonary disease." The patient's EKG shows sinus tachycardia with no ST changes. ASSESSMENT AND PLAN: 1. The patient has lactic acid elevation of 4.2, has fevers, but no source of infection so far was identified. Her urinalysis is pending at the time of dictation. Due to fevers and the patient's orthostasis, Dr. Norman requested for the patient to be transferred to medical floor for further evaluation and treatment. At this point, due to the patient's elevation of lactic acid, I am going to treat her empirically with 1 dose of vancomycin and place her on ceftriaxone. Further antibiotic treatment is going to be depending on her laboratory values. Blood cultures were already obtained. She has had no symptoms of flu whatsoever, which I do not think it will be needed at this point. We will ask Dr. Silva from Neurosurgery to see the patient in consultation due to the patient just had the surgery 10 days ago. At this point , the postoperative incision does not appear to be infected. 2. In regards to the patient's rash, it appears to be likely related to either drug allergy or contact dermatitis. Treatment with topical steroid is going to be continued for the time being as well as Benadryl p.r.n. 3. The patient is going to be continued on Physical Therapy evaluation during her hospital stay. 4. At this time, the patient has some mild dysphagia and she was noted to be in need of mechanical ground and thin liquids diet, which is going to be continued during her stay. 5. For DVT prophylaxis, the patient is going to be continued on Lovenox with Coumadin and until Coumadin is therapeutic. 6. The patient's code status is full. Her surrogate is her brother as mentioned above. TIME SPENT: Approximately 72 minutes were spent on admission of this patient. More than half that time was spent [id number] with the patient in evaluation of the patient. [id number]/[facility] #: [id number] BOLA
--- NOTE | 2017-12-01 12:55 | RAD ---
INDICATION: Fever in a patient with a history of brain tumor removal COMPARISON: MR the brain October 24, 2017 TECHNIQUE: Contiguous axial sections of the brain were obtained from the skull base to the vertex without contrast. FINDINGS: Postsurgical changes include evidence of craniectomy involving the occipital lobe and the right posterior frontal lobe. The ventricles, cisterns and sulci symmetrical involutional changes.. There is hyperattenuating material seen in the bilateral cerebellum as well as the left greater than right occipital lobes. The Hounsfield unit density is greater than that of blood and this is suspected to be related to the patient's prior surgery. There is hypoattenuation involving the white matter of the posterior right frontal lobe corresponding to increased intensity seen on the prior MRI of the brain. There is no midline shift or CT evidence of intracranial herniation. There is no definite evidence for intracranial hemorrhage. No significant focal osseous abnormality is present. The visualized portion of the paranasal sinuses appear clear. The mastoid air cells are well aerated bilaterally. IMPRESSION: Chronic and postsurgical changes as described above without definite CT evidence of acute intracranial abnormality independent of the patient's prior surgery.
[2017-12-01 14:35] LABS: Urine Appearance Cloudy; Urine Blood Negative (Negative); Urine Color Yellow; Urine Ketones Negative (Negative); Urine Protein Negative (Negative); Urine Specific Gravity 1.017 (1.010-1.030); Urine Urobilinogen Negative (Negative)
[2017-12-01] MEDS: NS 0.9% 1000 ML* 1,000 ML IV SCH (15:16)
[2017-12-01] MEDS: Warfarin TAB(*) 3 MG PO SCH (17:14)
[2017-12-01] MEDS: diPHENhydraMINE PO* 25 MG PO PRN ×2 (17:16→20:32)
[2017-12-01] MEDS: Senna TAB PO SCH (20:32)
[2017-12-01] MEDS: Enoxaparin(*) 30 MG/0.3 ML SYR SUBCUT SCH (20:32)
[2017-12-01] MEDS: Docusate CAP* 100 MG PO SCH (20:32)
[2017-12-01] MEDS: Hydrocortisone 1% CREAM* 30 GM TUBE TOPICAL SCH (20:33)
--- NOTE | 2017-12-02 00:10 | CONS ---
Amended report to enter date of consultation. CONSULTATION REPORT: DATE OF CONSULT: 12/01/2017. HISTORY OF PRESENT ILLNESS: The patient is a pleasant 62-year-old female with a history of breast cancer, who was treated with a mastectomy with also a history of right frontal craniotomy in the remote past for resection of brain mets with chronic left footdrop, who was recently operated on by Dr. Grace and Dr. Bailey on 11/21/17 for fenestration of posterior fossa arachnoid cyst. The patient tolerated the procedure well and stayed for approximately 1 week in [facility] where she was noted to have a generalized skin rash. She was [place] [facility] [place] because of increased temperature of 101 overnight, she was transferred to regular floor for further evaluation. Requested to see the patient by Dr. Tobar because of the history of recent surgery. The patient reports that she has done very well. She has no dehiscence from the wound and she has no headaches or vision difficulties. She does have some mild speech difficulties with dysarthria that is chronic as the patient reports. She denies any new weakness, numbness, or tingling of the lower extremities. She does have some baseline left footdrop as stated above. She ambulates with a walker and ankle brace. She denies any urinary or GI incontinence. The patient lives alone. PAST MEDICAL HISTORY: Breast cancer and brain metastasis; DVT, on Coumadin. PAST SURGICAL HISTORY: Right frontal metastatic resection, mastectomy, appendectomy, recent suboccipital craniotomy for fenestration of arachnoid cyst. MEDICATIONS: 1. The patient was given vancomycin and ceftriaxone. 2. Colace. 3. Coumadin. 4. Lovenox. 5. Benadryl. 6. Hydrocortisone. 7. Milk of magnesia. 8. Senokot. 9. Tylenol. 10. Tylenol with Codeine. ALLERGIES: PENICILLIN. FAMILY HISTORY: Diabetes. SOCIAL HISTORY: Negative alcohol, tobacco or recreational drug use. PHYSICAL EXAMINATION: The patient is awake, alert, oriented x3. Her pupils are equal and reactive. Cranial nerves II through XII are grossly intact. The patient has some mild dysarthria. Motor 5/5 in all extremities with the exception of the left foot dorsiflexion with EHL which is 0 to 1/5 . Sensory is grossly intact to light touch. Deep tendon reflexes +1 bilaterally. Clonus plus, minus on the left. Babinski positive on the left, negative on the right. Cody negative. The patient has mild dysmetria on the left. Her wound is soaked, clean, and dry, healing very well. No signs of or pseudomeningocele. Patient has not tenderness to palpation in the cervical, thoracic, and lumbar spine. Patient has full range of motion of the spine. She has no neck stiffness. ASSESSMENT: The patient is a very pleasant 62-year-old female who is status post suboccipital craniotomy with fenestration of arachnoid cyst on 11/21/17 with recent onset of fever and history of breast cancer, status post mastectomy and right frontal brain mets resection with left footdrop. PLAN: The patient at this point has been admitted by Internal Medicine, has been placed on empiric antibiotics. No clinical signs of wound infection at this point. The patient's white count was slightly elevated and UA is pending. Chest x-ray, no acute disease. We recommend a CT scan of the brain as a followup, incentive spirometer, out of bed with assistance. Continue with physical therapy and patient is currently undergoing serial workup by Internal Medicine. I appreciate the medicine care. Thank you for allowing us to participate in the care of this patient. Please do not hesitate to contact our office in case you have any further questions or concerns regarding the care of this patient. [id number]/[facility] #: [id number] MTDD
[2017-12-02] MEDS: NS 0.9% 1000 ML* 1,000 ML IV SCH (00:31)
[2017-12-02] MEDS: diPHENhydraMINE PO* 25 MG PO PRN ×3 (02:02→23:52)
[2017-12-02 07:13] LABS: INR 1.4 (0.77-1.02)
[2017-12-02 08:17] LABS: Hematocrit 30 % (35-47); Mean Corpuscular HGB Conc 34 g/dl (31-36); Mean Corpuscular Hemoglobin 32 pg (27-31); Mean Corpuscular Volume 94 fL (80-97); Red Blood Count 3.16 10^6/ul (4.0-5.4); Red Cell Distribution Width 14 % (10.5-15); White Blood Count 10.1 10^3/ul (3.5-10.8)
[2017-12-02 08:29] LABS: ABS Basophils 0 10^3/ul (0-0.2); ABS Eosinophils 0.8 10^3/ul (0-0.6); ABS Lymphocytes 1.1 10^3/ul (1.0-4.8); ABS Monocytes 0.5 10^3/ul (0-0.8); ABS Neutrophils 7.8 10^3/ul (1.5-7.7); ABS Nucleated RBC 0 10^3/ul; Eosinophil % 7.5 % (0-6); Lymphocyte % 10.8 % (25-47); Nucleated Red Blood Cells % 0; Platelet Count Platelets clumped. 10^3/ul (150-450)
[2017-12-02 09:15] LABS: EGFR Non-African American 97.9 (>60)
[2017-12-02] MEDS: Enoxaparin(*) 30 MG/0.3 ML SYR SUBCUT SCH ×2 (10:51→20:14)
[2017-12-02] MEDS: Hydrocortisone 1% CREAM* 30 GM TUBE TOPICAL SCH ×2 (10:52→20:14)
[2017-12-02] MEDS: Senna TAB PO SCH ×2 (10:52→20:14)
[2017-12-02] MEDS: Docusate CAP* 100 MG PO SCH ×2 (10:52→20:13)
[2017-12-02] MEDS: cefTRIAXone(*) 1 GM in NS 0.9% 50 ML* 50 ML IVPB SCH (10:54)
--- NOTE | 2017-12-02 13:27 | PN ---
Subjective Date of Service: 12/02/17 Interval History: Pt feels well. Fever did not recur. Pt had U. frequency and subsequent U. retention. Elliott was placed last night Objective Active Medications: Acetaminophen (Tylenol Tab*) 650 mg PO Q4H PRN PRN Reason: FEVER/PAIN Acetaminophen/Codeine Phosphate (Tylenol/Codeine 30 Mg Tab*) 1 tab PO Q6H PRN PRN Reason: HEADACHE Al Hydrox/Mg Hydrox/Simethicone (Maalox Plus*) 30 ml PO Q6H PRN PRN Reason: INDIGESTION Diphenhydramine HCl (Benadryl Po*) 25 mg PO Q4H PRN PRN Reason: itchy rash Last Admin: 12/02/17 02:02 Dose: 25 mg Docusate Sodium (Colace Cap*) 100 mg PO BID [facility] Last Admin: 12/02/17 10:52 Dose: 100 mg Enoxaparin Sodium (Lovenox(*)) 30 mg SUBCUT Q12H [facility] Last Admin: 12/02/17 10:51 Dose: 30 mg Hydrocortisone (Hytone Cream 1%*) 1 applic TOPICAL BID [facility] Last Admin: 12/02/17 10:52 Dose: 1 applic Ceftriaxone Sodium 1 gm/ (Sodium Chloride) 50 mls @ 200 mls/hr IVPB Q24H [facility] Last Admin: 12/02/17 10:54 Dose: 200 mls/hr Pharmacy Profile Note (Coumadin Daily Reminder*) 1 note FOLLOW UP 1700 [facility] Last Admin: 12/01/17 17:14 Dose: 1 note Senna (Senokot Tab*) 1 tab PO BID [facility] Last Admin: 12/02/17 10:52 Dose: 1 tab Warfarin Sodium (Coumadin Tab(*)) 3 mg PO DAILY@1700 [facility] PRN Reason: Protocol Last Admin: 12/01/17 17:14 Dose: 3 mg Vital Signs - 8 hr 12/02/17 12/02/17 08:00 08:23 Temperature 98.7 F Pulse Rate 88 Respiratory 16 16 Rate Blood Pressure 111/59 (mmHg) O2 Sat by Pulse 98 Oximetry Oxygen Devices in Use Now: None Appearance: 62 yo F in nAD, aAOx3, slow , measured speech Eyes: No Scleral Icterus, PERRLA Ears/Nose/Mouth/Throat: NL Teeth, Lips, Gums, Mucous Membranes Moist Neck: NL Appearance and Movements; NL JVP, - - posterior neck incition with no evidence of celluitis/dehiscence Respiratory: Symmetrical Chest Expansion and Respiratory Effort, Clear to Auscultation Cardiovascular: NL Sounds; No Murmurs; No JVD, RRR Abdominal: NL Sounds; No Tenderness; No Distention Lymphatic: No Cervical Adenopathy Extremities: No Edema, No Clubbing, Cyanosis Skin: No Nodules or Sclerosis, - - rash on pt's back -resolving raised arythema Neurological: Alert and Oriented x 3, - - left foot drop Result Diagrams: 12/02/17 06:48 12/02/17 06:48 Microbiology and Other Data: Microbiology 12/01/17 13:20 Urine Culture - Preliminary Urine Enterococcus Faecalis Assess/Plan/Problems-Billing Assessment: 62 yo F with h/o breast ca(with brain mets resection in 1998), DVT, s/p arachnoid cyst resection at [facility] on 11/21/17 wo was transferred from [facility] for SIRS - Patient Problems (1) SIRS (systemic inflammatory response syndrome) Comment: due to acute UTI, no hematuria noted, but pt had U.retention adnd Elliott needed to be placed. Cont Elliott Cont Ceftriaxone Blood Cx NTD U Cx pending (2) Status post craniotomy Comment: slow speech noted. L foot drop is due to cantiotomy in 1998 Cont PT (3) Rash and nonspecific skin eruption Comment: suspect contact dermatitis. Improved with steroid cream (4) History of deep vein thrombosis Comment: cont Lovenox/Coumadin Status and Disposition: Inpatient. May be able to go back to [facility] in AM
--- NOTE | 2017-12-02 13:41 | PN ---
Progress Note - Progress Note Date of Service: 12/02/17 SOAP: Subjective: [] No events ON.Elliott. No ARMANDO Objective: []VSS Afebrile Wound s,c,d AAOx3 , Beth 4-5/5 left foot drop stable Sensory grossly intact to light touch Assessment: []62 yof sp suboccipital craniotomy for arachnoid cyst fenestration Plan: []CT revealed post op changes UA positive. Monitor VS, Neurochecks Continue PT No acute intervention from NS standpoint Appreciate IM care. Erica Silva MD
[2017-12-02] MEDS: Warfarin TAB(*) 3 MG PO SCH (17:11)
[2017-12-03 07:00] LABS: ABS Basophils 0 10^3/ul (0-0.2); ABS Eosinophils 0.7 10^3/ul (0-0.6); ABS Lymphocytes 1.4 10^3/ul (1.0-4.8); ABS Monocytes 0.4 10^3/ul (0-0.8); ABS Neutrophils 4.7 10^3/ul (1.5-7.7); ABS Nucleated RBC 0 10^3/ul; Eosinophil % 10.3 % (0-6); Hematocrit 31 % (35-47); Hemoglobin 10.8 g/dl (12.0-16.0); Mean Corpuscular HGB Conc 35 g/dl (31-36); Mean Corpuscular Hemoglobin 33 pg (27-31); Mean Corpuscular Volume 94 fL (80-97); Mean Platelet Volume 6.9 um3 (7.4-10.4); Nucleated Red Blood Cells % 0; Platelet Count 308 10^3/ul (150-450); Red Blood Count 3.26 10^6/ul (4.0-5.4); Red Cell Distribution Width 14 % (10.5-15); White Blood Count 7.2 10^3/ul (3.5-10.8)
[2017-12-03 07:50] LABS: INR 1.33 (0.77-1.02)
[2017-12-03] MEDS: Hydrocortisone 1% CREAM* 30 GM TUBE TOPICAL SCH (09:35)
[2017-12-03] MEDS: Senna TAB PO SCH (09:36)
[2017-12-03] MEDS: Docusate CAP* 100 MG PO SCH (09:36)
[2017-12-03] MEDS: Enoxaparin(*) 30 MG/0.3 ML SYR SUBCUT SCH (09:36)
[2017-12-03] MEDS: cefTRIAXone(*) 1 GM in NS 0.9% 50 ML* 50 ML IVPB SCH (10:57)
[2017-12-03 11:48] VITALS: BP 115/61
[2017-12-03] MEDS ORDERED: Linezolid TAB* 600 MG PO SCH (12:00)
--- NOTE | 2017-12-03 23:54 | DS ---
CC: Chelsey Srinivasan MD; Dr. Newby; Dr. Norman; Dr. Bailey; Dr. Silva ; Dr. Grace from Neurosurgery Department at [facility] * DISCHARGE SUMMARY: DATE OF ADMISSION: 12/01/17 DATE OF TRANSFER BACK TO PHYSIOTHERAPY UNIT: 12/03/17 PRIMARY CARE PROVIDER: Chelsey Srinivasan MD DISCHARGE DIAGNOSIS: Sepsis due to Enterococcus faecalis urinary tract infection and subsequent urinary retention due to that. SECONDARY DIAGNOSES: 1. History of arachnoid cyst resection from supracerebellar region performed on 11/21/[address] Grace in [facility]. 2. History of mastectomy in 1995 on the right side. 3. History of brain metastasis from breast cancer in 1998, status post craniotomy and resection of the tumor. Subsequently, the patient has had chronic left-sided footdrop. 4. History of deep venous thrombosis in 1998, on Coumadin. 5. History of appendectomy. MEDICATIONS AT DISCHARGE: Include: 1. Linezolid 600 mg p.o. twice a day for a total of 4 days. 2. Acetaminophen with codeine on a p.r.n. basis. 3. Tylenol on a p.r.n. basis. 4. Maalox on a p.r.n. basis. 5. Benadryl 25 mg every 4 hours p.r.n. 6. Colace 100 mg b.i.d. 7. Lovenox 30 mg subcutaneously every 12 hours. 8. Coumadin 3 mg daily. 9. Senokot 1 tablet b.i.d. p.r.n. 10. Hydrocortisone cream 1%, apply to affected skin areas b.i.d. LABORATORY DATA AND STUDIES PERFORMED DURING THE HOSPITAL STAY: Included on , INR of 1.33. White blood cell count of 7.2, hemoglobin is 10.8, hematocrit of 31, and platelets of 308,000. Sodium was 139, potassium 3.6, chloride 105, carbon dioxide 28, BUN 14, creatinine 0.66. Urine microbiology and urine culture showed Enterococcus faecalis of 75,000 to 100,000 colonies. Blood cultures obtained on 12/01/17 were negative on the day of discharge. HOSPITALIZATION COURSE: Katerine Gonzalez is a 62-year-old female, who was undergoing physiotherapy evaluation and treatment at our physiotherapy unit after arachnoid cyst resection and craniotomy for it. On 12/01/17, the patient developed fever, was orthostatic and had orthostatic hypotension. Her lactic acid was elevated. She was transferred to medical floor for further evaluation and treatment. Initially, she was empirically treated with vancomycin and ceftriaxone. Later on, vancomycin was discontinued. Eventually, the patient's blood cultures were negative, but urine cultures were positive for Enterococcus faecalis. At this point, the likely reason and cause of her sepsis was E. Faecalis UTI. I curbsided the infectious disease specialist since the patient is allergic to PENICILLIN and she has Enterococcus faecalis UTI for antibiotic choice. Linezolid was recommended for a total of 4 more days p.o. Please also note that the complicating factor of the patient's hospitalization was the patient developed urinary retention within 24 hours of her hospital stay on our medical floor and needed a Elliott catheter to be placed. At this point, I suspect this is related to her UTI and the catheter can be discontinued at the end of her antibiotic treatment. That was discussed with Dr. Newby. Dr. Silva saw the patient in consultation in regards to fever in a patient who had neurosurgery. A CAT scan was obtained of the patient's brain, which was unremarkable apart from postsurgical changes. There were no indications on the neurosurgeon's evaluation that the patient's source of the infection could be from her surgical site. The patient is going to be discharged back to physiotherapy unit for further treatment and PT evaluation. PHYSICAL EXAMINATION: At the time of discharge, blood pressure of 115/61, heart rate of 88 and regular, respiratory rate 16, oxygen saturation 100% on room air, temperature 98.0. General: The patient is a very pleasant 62-year- old female who is in no acute distress. The patient is alert and oriented x3, but is a poor historian with rather slow and measured voice. HEENT: Head: Atraumatic, normocephalic. Eyes: Pupils are equal, reactive to light and accommodation. Oropharynx is clear. Mucosa moist. Neck: Supple. No JVD. No bruits bilaterally. The patient has a midline back and neck incision of approximately 10 cm suture with no evidence of dehiscence, no evidence of skin infection, very mild erythema near the suture site. Respiratory: Clear to auscultation bilaterally. Abdomen: Soft, nontender. Bowel sounds are present in all 4 quadrants. Extremities: There is no edema. Pulses are +2 bilaterally. No clubbing or cyanosis. On neuro evaluation, the patient has slow and measured speech. Cranial nerves II through XII grossly intact. Motor strength is 5/5 bilaterally in bilateral lower extremities apart from the left footdrop, which is chronic. Please note that this is a short summary of the patient's hospitalization. Please refer to further medical records for details. TIME SPENT: Approximately 45 minutes was spent in preparation of the patient's discharge. [id number]/[facility] #: [id number] [facility]US[facility]ake
== END 2017-12-03 15:25 | DRG 720 ==
LOC: MED 10:21
PROVIDERS: ADMIT Internal Medicine; ATTEND Internal Medicine
DX: A41.9 Sepsis, unspecified organism (principal); N39.0 Urinary tract infection, site not specified; B95.2 Enterococcus as the cause of diseases classified elsewhere; R33.9 Retention of urine, unspecified; M21.372 Foot drop, left foot; L25.9 Unspecified contact dermatitis, unspecified cause; R47.1 Dysarthria and anarthria; Z85.3 Personal history of malignant neoplasm of breast; Z98.890 Other specified postprocedural states; Z86.718 Personal history of other venous thrombosis and embolism; Z79.01 Long term (current) use of anticoagulants; Z79.1 Long term (current) use of non-steroidal anti-inflammatories (NSAID); Z79.899 Other long term (current) drug therapy; Z88.0 Allergy status to penicillin; Z83.3 Family history of diabetes mellitus; Z85.841 Personal history of malignant neoplasm of brain
CPT/HCPCS: 36415; 70450; 80048; 81003; 81015; 83605; 85025; 85610; 87077; 87086; 87186; A9270-GY; J0696; J1650

== ENCOUNTER 2017-12-03 12:06 | Inpatient (IN) | payer BC ==
[2017-12-03] MEDS ORDERED: Magnesium Hydroxide LIQ* 30 ML UDC PO PRN (16:03)
[2017-12-03] MEDS ORDERED: Senna TAB PO PRN (16:03)
[2017-12-03] MEDS ORDERED: Acetaminophen TAB* 325 MG PO PRN (16:03)
[2017-12-03] MEDS ORDERED: Acetaminop/Codeine 30 MG TAB* 1 TAB (300 MG/30 MG) PO PRN (16:12)
[2017-12-03] MEDS ORDERED: diPHENhydraMINE PO* 25 MG PO PRN (16:12)
[2017-12-03] MEDS: Warfarin TAB(*) 4 MG PO SCH (17:49)
--- NOTE | 2017-12-03 18:21 | HP ---
ADMISSION HISTORY AND PHYSICAL: DATE OF ADMISSION: 12/03/17 REASON FOR ADMISSION: The patient is status post drainage of an intracranial arachnoid cyst. HISTORY OF PRESENT ILLNESS: Katerine Gonzalez is a 62-year-old female. She has a medical history significant for breast cancer, which developed 20 years ago. She had a right mastectomy with a lymph node dissection at that time. She also developed a DVT and has been on chronic Coumadin ever since. She had brain mets and had a craniotomy with tumor resection at that time. She has had a left footdrop since then and normally uses an AFO to walk with. The patient developed balance difficulties about 2 years ago. She never saw a doctor for it. Her brother called her in September of this year and he felt like her speech was slurred. He advised her to go see her doctor. She went to her primary care provider, who ordered an MRI of her brain and referred her to Dr. Bailey. The MRI of her brain showed a large midline cerebellar arachnoid cyst. Dr. Bailey sent her to a neurosurgeon in [place]. The patient was admitted to [facility] on 11/23/17 and underwent a suboccipital craniotomy with fenestration of the arachnoid cyst. Postoperatively, she had severe headaches, but this gradually improved. She was originally transferred to inpatient rehab at [facility] on 11/29/17. Shortly after admission, the patient developed spiking temperatures and developed an episode of hypotension on the morning of 12/01/17. The patient was transferred to the acute medical service. While on the medical service, her urine came back suspicious for a urinary tract infection. It grew out Enterococcus faecalis. She also had urinary frequency and subsequent urinary retention. She was originally started on vanco and ceftriaxone, but later she was switched over to Zyvox because of a history of PENICILLIN allergy. The patient had a Elliott catheter placed for urinary retention on the acute medical service. She is now returning to inpatient rehab to resume her rehabilitation. PAST MEDICAL HISTORY: As noted above. She had a bone marrow transplant while she was sick with breast cancer. CURRENT MEDICATIONS: Include: 1. Lovenox. 2. Coumadin. 3. Tylenol with Codeine for headaches. 4. Zyvox for her urinary tract infection. ALLERGIES: To PENICILLIN. SOCIAL HISTORY: She is a nonsmoker, nondrinker. Lives by herself in a ranch- style house with 3 steps to enter. Her laundry is in the basement. She was independent prior to admission. 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 PHYSICAL EXAMINATION VITAL SIGNS: The patient's temperature is 97.5, blood pressure is 105/55, pulse 92, respirations 18. HEENT: Her face appears to be symmetric. She has a wound on the back of her head, which appears to be clean. NECK: Supple. LUNGS: Sound clear to auscultation bilaterally. HEART: Heart sounds are regular, S1 and S2 audible. ABDOMEN: Soft and nontender. EXTREMITIES: Peripheral pulses are intact. NEUROLOGIC: She is awake, alert, oriented. She does have a left footdrop. Her speech is slightly slurred. FUNCTIONAL EXAM: She transfers with contact guard. ASSESSMENT: Status post fenestration of a cerebellar arachnoid cyst. PLAN: We are going to integrate her into a comprehensive and therapeutic rehab program. Will have the following goals: 1. Physical Therapy will work with the patient. They are going to work on functional transfer training, ambulation training with a walker. 2. Occupational Therapy will see the patient. They are going to work on her activities of daily living including toileting and toilet transfers. 3. Speech Therapy will see the patient. Work on her speech difficulties as well as any swallowing difficulties. 4. Coumadin for DVT prophylaxis. 5. Tylenol No. 3 for headaches. 6. Her bowels will be regulated. 7. Automotive Painter will be closely involved to make sure that any services and equipment the patient requires are in place prior to discharge. 8. Family training as appropriate. 9. Home with appropriate services. ESTIMATED LENGTH OF STAY: 7 to 10 days. [id number]/[facility] #: [id number] [facility]ITAL[facility]
[2017-12-03] MEDS: Linezolid TAB* 600 MG PO SCH (18:38)
[2017-12-03] MEDS: Docusate CAP* 100 MG PO SCH (21:22)
[2017-12-03] MEDS: Enoxaparin(*) 30 MG/0.3 ML SYR SUBCUT SCH (21:22)
[2017-12-04] MEDS: Linezolid TAB* 600 MG PO SCH ×2 (05:15→18:19)
[2017-12-04 06:47] LABS: INR 1.29 (0.77-1.02)
[2017-12-04] MEDS: Docusate CAP* 100 MG PO SCH ×2 (09:22→19:52)
[2017-12-04] MEDS: Enoxaparin(*) 30 MG/0.3 ML SYR SUBCUT SCH ×2 (09:22→21:59)
--- NOTE | 2017-12-04 12:26 | PMRUTEAM ---
PMRU: Team Meeting Current Status: Nursing: Current Status Skin Deviations [abdomen] Bruise Skin Deviations [back of head] Incision Skin Deviation Description [ injections abdomen] Skin Deviation Description [ dry feet] Skin Deviation Description [ opened to air - well healed back of head] Physical Therapy: Current Status Bed Mobility Assistance Supervision Transfer Moblility Assistance Supervision Transfer/Bed Mobility Rolling Walker Recommended Devices Transfer Mobility Comment Pt. is able to perform a SPT using a 2 w/w S x 1. Ambulation Assistance Supervision Ambulation Assistive Devices Rolling Walker Number of Feet Patient 150' Ambulated Ambulation Comment Pt. presents an ataxic modified reciprocal type gait pattern. Stairs Assistance Supervision Stairs Recommended Devices One Rail,Two Rails Number of Stairs 5 steps 2 rails and 12 steps 1 rail S x 1. Occupational Therapy: Current Status Upper Body Dressing Supervision Upper Body Dressing Progress setupA Lower Body Dressing Mod Assist Lower Body Dressing Progress increased assist 2* james Bathing Min Assist Bathing Progress assist to wash dariusz feet, Zuly for balance in standing portion Toileting Contact Guard Assist Toilet Transfer Contact Guard Assist Shower Transfer Min Assist Eating Independent Rec Therapy: Current Status Summary of Assessment and Re-introduce RT services as pt. was d/c'ed from Clinical Impression the unit last week then re-admitted. RT assessment complete, pt. expressed interest in leisure involvement while on the unit. Treatment Goals Pt. will engage in leisure activities while on the unit. Treatment Plan Provide RT services and encourage involvement. Social Work: Current Status Discharge Plan return home with home care svs and family support Potential for Family Training TBD Anticipated Discharge Home Destination Discharge With home care svs and family support Nutrition: Current Status Monitoring full nutrition assessment planned 12/13 per Nutrition protocol. Eating well w/regular diet thus far; tolerating mech soft textures for ease of chewing. Thin liquids also tolerated. Last BM 12/03. Initial goals as outlined below. Goals: Physical Therapy: Initial Goals Bed Mobility Assistance Independent Transfer Mobility Assistance Independent Transfer/Bed Mobility Rolling Walker Recommended Devices Ambulation Independent Ambulation Recommended Devices Rolling Walker Ambulation Distance 300 Stairs Assistance Independent Stair Recommended Devices One Rail Number of Stairs 12 Physical Therapy: Updated Goals Bed Mobility Assistance Independent Transfer Mobility Assistance Independent Transfer/Bed Mobility Rolling Walker Recommended Devices Ambulation Assistance Independent Ambulation Assistive Devices Rolling Walker Ambulation Distance (ft) 300 Stairs Assistance Independent Stairs Recommended Devices One Rail Number of Stairs 12 Nutrition: Goals Intervention Goals 1. adequate po intake to support post-op healing and maintenance of lean body mass without add'l wt gain 2. pt will tolerate least-restrictive diet textures without difficulty chewing 3. maintain bowel regularity w/o constipation or diarrhea Social Work: Goals Discharge Plan return home with home care svs and family support Potential for Family Training TBD Anticipated Discharge Home Destination Discharge With home care svs and family support Care Plan: Care Plan DVT Prophylaxis- Improve/Maintain Start: 12/03/17 16:30 Freq: DAILY Status: Active Target: Protocol: Activity Type Activity Date Activity User E-Sign Co-Sign Detail Recorded Client Recorded Date Recorded By Document 12/04/17 00:01 [id number] 12/04/17 00:02 [id number] 12/04/17 00:01 PMRU Outcome: DVT Prophylaxis Outcome/Goals Remains Free of DVT Complies with DVT Prophylaxis /Treatment Demonstrates Knowledge of DVT Prevention/ Treatment Progression Toward Outcome/Goals Progressing Education-Improve/Maintain Start: 12/03/17 16:30 Freq: DAILY Status: Active Target: Protocol: Activity Type Activity Date Activity User E-Sign Co-Sign Detail Recorded Client Recorded Date Recorded By Document 12/04/17 00:01 [id number] 12/04/17 00:02 [id number] 12/04/17 00:01 PMRU Outcome: Education Outcome/Goals Encourage Questions Progression Toward Outcome/Goals Progressing /GI-Improve/Maintain Start: 12/03/17 16:30 Freq: DAILY Status: Active Target: Protocol: Activity Type Activity Date Activity User E-Sign Co-Sign Detail Recorded Client Recorded Date Recorded By Document 12/04/17 00:01 [id number] 12/04/17 00:02 [id number] 12/04/17 00:01 PMRU Outcome: Genitourinary/ Gastrointestinal Genitourinary- Outcome/Goals Maintain/ Achieve Urinary Continence Gastrointestinal-Outcome/Goals Prevent Constipation Laxatives as Ordered Progression Toward Outcome/Goals - Progressing Medication Administration Start: 12/03/17 16:30 Freq: DAILY Status: Active Target: Protocol: Activity Type Activity Date Activity User E-Sign Co-Sign Detail Recorded Client Recorded Date Recorded By Document 12/04/17 00:01 [id number] 12/04/17 00:02 [id number] 18 00:01 PMRU Outcome: Medication Administration Assess Patient Knowledge/Teach Med Yes Education for all Meds Outcome/Goals Patient Independent with Medication Administration at Home Progression Towards Outcome/Goals Progressing Is Patient Going Home on Lovenox? No Pain/Comfort- Improve/Maintain Start: 12/03/17 16:30 Freq: DAILY Status: Active Target: Protocol: Activity Type Activity Date Activity User E-Sign Co-Sign Detail Recorded Client Recorded Date Recorded By Document 12/04/17 00:01 [id number] 12/04/17 00:02 [id number] 12/04/17 00:01 PMRU Outcome: Pain/Comfort Outcome/Goals Demonstrates Knowledge and Use of Available Comfort Measures Achieves Acceptable Comfort/Pain Level as Determined by Patient/Condit Maintain Comfort Level Allowing Patient to Fully Participate in Rehab Other Outcome/Goals no c/o pain verbalized thus far Progression Toward Outcome/Goals Progressing Skin- Improve/Maintain Start: 12/03/17 16:30 Freq: DAILY Status: Active Target: Protocol: Activity Type Activity Date Activity User E-Sign Co-Sign Detail Recorded Client Recorded Date Recorded By Document 12/04/17 00:01 [id number] 12/04/17 00:02 [id number] 12/04/17 00:01 PMRU Outcome: Skin Skin Risk Level Low Outcome/Goals Surgical Incisions Healing Progression Toward Outcome/Goals Progressing Medicine Note: Length of Stay: 2 days Anticipated Discharge Destination: Home Tentative Discharge Date: 12/06/16 Discharged to: Home
--- NOTE | 2017-12-04 17:07 | PN ---
Progress Note Date of Service: 12/04/17 Note: MARAH GOODE was visited. Therapy notes read and reviewed. She was discussed in interdisciplinary team rounds. She has made gains and is doing well. Current Medications: Active Medications Generic Name Dose Route Start Last Admin Trade Name Freq PRN Reason Stop Dose Admin Acetaminophen 650 mg 12/03/17 16:03 Tylenol Tab* PO Q6H PRN FEVER/HEADACHE Acetaminophen/Codeine Phosphate 1 tab 12/03/17 16:12 Tylenol/Codeine 30 Mg Tab* PO Q6H PRN HEADACHE/PAIN Diphenhydramine HCl 25 mg 12/03/17 16:12 12/04/17 00:59 Benadryl Po* PO 25 mg Q6H PRN Administration ITCHING Docusate Sodium 100 mg 12/03/17 21:00 12/04/17 09:22 Colace Cap* PO 100 mg BID GIULIANA Administration Enoxaparin Sodium 30 mg 12/03/17 22:00 12/04/17 09:22 Lovenox(*) SUBCUT 30 mg Q12H GIULIANA Administration Hydrocortisone 1 applic 12/04/17 21:00 Hytone Cream 1%* TOPICAL BID GIULIANA Linezolid 600 mg 12/03/17 17:00 12/04/17 05:15 Zyvox Tab* PO 12/08/17 23:59 600 mg Q12H GIULIANA Administration Magnesium Hydroxide 30 ml 12/03/17 16:03 Milk Of Magnesia Liq* PO Q6H PRN CONSTIPATION Senna 2 tab 12/03/17 16:03 Senokot Tab* PO BEDTIME PRN CONSTIPATION Warfarin Sodium 4 mg 12/03/17 17:00 12/03/17 17:49 Coumadin Tab(*) PO 4 mg DAILY@1700 GIULIANA Administration Protocol Vital Signs: Vital Signs Temp Pulse Resp BP Pulse Ox 98.2 F 100 20 116/69 94 12/04/17 15:30 12/04/17 15:30 12/04/17 15:30 12/04/17 15:30 12/04/17 15:30 Lab Results: Laboratory Results - last 24 hr 12/04/17 05:52 INR (Anticoag Therapy) 1.29 H Exam: HEENT: Scar at back of head LUNGS: Clear HEART: Reg rhythm ABDOMEN: Soft. +BS. Fading rash over trunk and buttocks NEUROLOGIC: alert, oriented. Muscle strength 5/5 except left DF which was 3/5 Assessment/Plan: 1. 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 Urosepsis: Zyvox 3. DVT prophylaxis: Coumadin/Lovenox 4. History of breast cancer: stable 5. Headaches: Not really an issue. Tylenol #3 6. Drug Rash: fading. Hydrocortisone cream PRN 12/04/17 17:08
[2017-12-04] MEDS: Warfarin TAB(*) 4 MG PO SCH (18:19)
--- NOTE | 2017-12-04 21:37 | EEG ---
ELECTROENCEPHALOGRAPHY: DATE OF STUDY: 12/04/17 - ROOM #252 PATIENT OF: Halley Norman MD CLINICAL PROBLEM: This is a 62-year-old woman being evaluated following a large supracerebellar arachnoid cyst. She has had past history of one seizure in the past secondary to brain mets, but has never been on antiseizure medicine. MEDICATIONS: Include: 1. Colace. 2. Hydrocortisone. 3. Senokot. 4. Lovenox. 5. Rocephin. 6. Maalox. 7. Benadryl. REPORT: With the patient awake, background cerebral activity consists of moderate amplitude posterior dominant 9 Hz rhythm. With the patient drowsy, there is slowing into the theta range. The patient never falls asleep. No epileptiform potentials, focal abnormalities, or major asymmetries of background are noted. CLINICAL IMPRESSION: This awake and drowsy EEG is within normal limits. [id number]/[facility] #: [id number] MTDD
[2017-12-04] MEDS: Hydrocortisone 1% CREAM* 30 GM TUBE TOPICAL SCH (21:59)
[2017-12-05] MEDS: Linezolid TAB* 600 MG PO SCH ×2 (05:30→17:30)
[2017-12-05 05:44] LABS: ABS Basophils 0.1 10^3/ul (0-0.2); ABS Eosinophils 1.4 10^3/ul (0-0.6); ABS Lymphocytes 2.2 10^3/ul (1.0-4.8); ABS Monocytes 0.6 10^3/ul (0-0.8); ABS Neutrophils 5.4 10^3/ul (1.5-7.7); ABS Nucleated RBC 0 10^3/ul; Eosinophil % 14.9 % (0-6); Hematocrit 32 % (35-47); Lymphocyte % 22.7 % (25-47); Mean Corpuscular HGB Conc 34 g/dl (31-36); Mean Corpuscular Hemoglobin 32 pg (27-31); Mean Corpuscular Volume 94 fL (80-97); Mean Platelet Volume 6.5 um3 (7.4-10.4); Nucleated Red Blood Cells % 0; Platelet Count 367 10^3/ul (150-450); Red Blood Count 3.46 10^6/ul (4.0-5.4); Red Cell Distribution Width 14 % (10.5-15); White Blood Count 9.6 10^3/ul (3.5-10.8)
[2017-12-05 05:50] LABS: INR 1.6 (0.77-1.02)
[2017-12-05 06:09] LABS: EGFR Non-African American 82.3 (>60)
[2017-12-05] MEDS: Hydrocortisone 1% CREAM* 30 GM TUBE TOPICAL SCH ×2 (08:50→20:54)
[2017-12-05] MEDS: Docusate CAP* 100 MG PO SCH ×2 (08:50→20:54)
[2017-12-05] MEDS: Enoxaparin(*) 30 MG/0.3 ML SYR SUBCUT SCH ×2 (08:51→20:55)
[2017-12-05] MEDS: Warfarin TAB(*) 4 MG PO SCH (17:30)
--- NOTE | 2017-12-05 21:18 | PN ---
Progress Note Date of Service: 12/05/17 Note: MARAH GOODE was visited. Therapy notes read and reviewed.She is set for discharge tomorrow afternoon. Her james is set to come out tomorrow. I have told the family she can't go home if she does not void, or will have to go home with a james. Current Medications: Active Medications Generic Name Dose Route Start Last Admin Trade Name Freq PRN Reason Stop Dose Admin Acetaminophen 650 mg 12/03/17 16:03 Tylenol Tab* PO Q6H PRN FEVER/HEADACHE Acetaminophen/Codeine Phosphate 1 tab 12/03/17 16:12 Tylenol/Codeine 30 Mg Tab* PO Q6H PRN HEADACHE/PAIN Diphenhydramine HCl 25 mg 12/03/17 16:12 12/04/17 00:59 Benadryl Po* PO 25 mg Q6H PRN Administration ITCHING Docusate Sodium 100 mg 12/03/17 21:00 12/05/17 20:54 Colace Cap* PO Not Given BID GIULIANA Enoxaparin Sodium 30 mg 12/05/17 09:00 12/05/17 20:55 Lovenox(*) SUBCUT 30 mg Q12HR GIULIANA Administration Hydrocortisone 1 applic 12/04/17 21:00 12/05/17 20:54 Hytone Cream 1%* TOPICAL 1 applic BID GIULIANA Administration Linezolid 600 mg 12/03/17 17:00 12/05/17 17:30 Zyvox Tab* PO 12/08/17 23:59 600 mg Q12H GIULIANA Administration Magnesium Hydroxide 30 ml 12/03/17 16:03 Milk Of Magnesia Liq* PO Q6H PRN CONSTIPATION Senna 2 tab 12/03/17 16:03 Senokot Tab* PO BEDTIME PRN CONSTIPATION Warfarin Sodium 4 mg 12/03/17 17:00 12/05/17 17:30 Coumadin Tab(*) PO 4 mg DAILY@1700 GIULIANA Administration Protocol Vital Signs: Vital Signs Temp Pulse Resp BP Pulse Ox 98.1 F 89 20 118/72 100 12/05/17 16:00 12/05/17 16:00 12/05/17 19:55 12/05/17 16:00 12/05/17 19:55 Lab Results: Laboratory Results - last 24 hr 04/12/05/17 12/05/17 05:27 05:27 05:27 WBC 9.6 RBC 3.46 L Hgb 11.0 L Hct 32 L MCV 94 MCH 32 H MCHC 34 RDW 14 Plt Count 367 MPV 6.5 L Neut % (Auto) 56.0 Lymph % (Auto) 22.7 L Morton % (Auto) 5.8 Eos % (Auto) 14.9 H Baso % (Auto) 0.6 Absolute Neuts (auto) 5.4 Absolute Lymphs (auto) 2.2 Absolute Monos (auto) 0.6 Absolute Eos (auto) 1.4 H Absolute Basos (auto) 0.1 Absolute Nucleated RBC 0 Nucleated RBC % 0 INR (Anticoag Therapy) 1.60 H Sodium 138 L Potassium 4.0 Chloride 102 Carbon Dioxide 31 Anion Gap 5 BUN 14 Creatinine 0.72 Est GFR ( Amer) 105.9 Est GFR (Non-Af Amer) 82.3 BUN/Creatinine Ratio 19.4 Glucose 96 Calcium 8.8 Total Bilirubin 0.20 AST 26 ALT 25 Alkaline Phosphatase 69 Total Protein 5.6 L Albumin 3.2 Globulin 2.4 Albumin/Globulin Ratio 1.3 Exam: HEENT: Scar at back of head LUNGS: Clear HEART: Reg rhythm ABDOMEN: Soft. +BS. Fading rash over trunk and buttocks NEUROLOGIC: alert, oriented. Muscle strength 5/5 except left DF which was 3/5 Assessment/Plan: 1. 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 Urosepsis: Zyvox 3. DVT prophylaxis: Coumadin 4. History of breast cancer: stable 5. Headaches: Not really an issue. Tylenol #3 6. Drug Rash: fading. Hydrocortisone cream PRN 12/05/17 21:18
[2017-12-06 05:57] VITALS: BP 104/62
[2017-12-06] MEDS: Linezolid TAB* 600 MG PO SCH (06:02)
[2017-12-06] MEDS: Docusate CAP* 100 MG PO SCH (08:52)
[2017-12-06] MEDS: Hydrocortisone 1% CREAM* 30 GM TUBE TOPICAL SCH (08:53)
--- NOTE | 2017-12-06 23:05 | DS ---
CC: Dr. Chelsey Srinivasan * DISCHARGE SUMMARY: DATE OF ADMISSION: 12/03/17 DATE OF DISCHARGE: 12/06/17 DISCHARGE DIAGNOSES: 1. Status post drainage of an intracranial arachnoid cyst. 2. Urinary tract infection. 3. Urinary retention. 4. History of deep vein thrombosis. 5. Left foot drop. 6. Breast cancer. HISTORY OF ILLNESS AND HOSPITAL COURSE: For complete history of the events leading up to rehab state, please see the history and physical dictated by me on 11/29/17 as well as the history and physical dictated by me on 12/03/17. While on the medical rehab unit, the patient remained medically stable. She was treated with Zyvox for her urinary tract infection with Enterococcus faecalis. The patient was otherwise medically stable. She did have an EEG done , which was ordered while she was on the acute medical service and the EEG did not show any epileptiform activity. Otherwise, the patient was medically stable. The patient did have Elliott clamping done. Her Elliott catheter was removed on the morning of 12/06/17. The patient voided twice after removal of the Elliott catheter. The patient's family came in for family training. The patient was maintained on Coumadin for DVT prophylaxis. Her INR was therapeutic at the time of discharge. The patient had a drug rash, which was fading while on the rehab unit. It was treated with topical hydrocortisone. The patient was seen by Physical and Occupational Therapy and made good gains with both disciplines. With physical therapy at the time of admission, the patient required contact guard to transfer, contact guard to ambulate. With occupational therapy at the time of admission, the patient required min assist for upper body dressing, min assist for lower body dressing, min assist for bathing, min assist for grooming. By the time of discharge, the patient was independent in transfers, independent in ambulating with a rolling walker, independent with toilet transfers, independent with toileting, independent with her activities of daily living. The patient was discharged home to her own home in the company of her cousins on 12/06/17. DISCHARGE DIET: Regular. DISCHARGE MEDICATION: 1. Zyvox 600 mg orally twice a day for 5 doses. 2. Benadryl 25 mg every 6 hours as needed. 3. Coumadin 3 mg daily. 4. Hydrocortisone cream 1% apply to the drug rash as needed. SERVICES AFTER DISCHARGE: Visiting nurse services, she will have home nursing, home physical therapy and home health aid. Follow up with her neurosurgeon, Dr. Liban Grace, in [place], [place] as well as her primary care doctor, Dr. Chelsey Srinivasan. [id number]/[facility] #: [id number] BOLA
== END 2017-12-06 15:00 | disposition home health service (06) | DRG 862 ==
LOC: PMRU 15:46
PROVIDERS: ADMIT Physical Medicine & Rehabilitation; ATTEND Physical Medicine & Rehabilitation
PROC: F07Z5ZZ Bed Mobility Treatment (ICD-10-PCS; principal; 2017-12-03)
PROC: F07Z9ZZ Gait Training/Functional Ambulation Treatment (ICD-10-PCS; 2017-12-03)
PROC: F07Z8ZZ Transfer Training Treatment (ICD-10-PCS; 2017-12-03)
PROC: F08Z0ZZ Bathing/Showering Techniques Treatment (ICD-10-PCS; 2017-12-03)
PROC: F08Z1ZZ Dressing Techniques Treatment (ICD-10-PCS; 2017-12-03)
PROC: F08Z3ZZ Feeding/Eating Treatment (ICD-10-PCS; 2017-12-03)
DX: Z48.89 Encounter for other specified surgical aftercare (principal); N39.0 Urinary tract infection, site not specified; Z94.81 Bone marrow transplant status; G93.0 Cerebral cysts; R33.9 Retention of urine, unspecified; M21.372 Foot drop, left foot; B96.89 Other specified bacterial agents as the cause of diseases classified elsewhere; L27.1 Localized skin eruption due to drugs and medicaments taken internally; Z86.718 Personal history of other venous thrombosis and embolism; Z85.3 Personal history of malignant neoplasm of breast; Z79.01 Long term (current) use of anticoagulants; Z79.1 Long term (current) use of non-steroidal anti-inflammatories (NSAID); Z79.899 Other long term (current) drug therapy; Z88.0 Allergy status to penicillin
CPT/HCPCS: 36415; 80053; 85025; 85610; A9270-GY; J1650

== ENCOUNTER 2018-03-26 08:28 | Emergency (ER) | payer BC ==
--- NOTE | 2018-03-26 09:19 | RAD ---
Indication: Left foot pain. 3 views of left foot reviewed. Diffuse osteopenia is present. There is deformity of the head of the first metatarsal with suggestion of erosive changes. No obvious fracture is noted and clinical correlation is suggested. There is a fracture at the base of the fifth metatarsal. Additionally there appears to be a fracture of the head of the fifth metatarsal. IMPRESSION: Deformity of the first metatarsal head likely due to chronic changes as there appears to be erosive changes. There appears to be a fracture of the fifth metatarsal head as well as the base of the fifth metatarsal.
--- NOTE | 2018-03-26 10:44 | ED ---
Lower Extremity - HPI Summary HPI Summary: Patient is a 62-year-old female presenting to the ED after a fall in the shower this morning with left lateral foot pain. Denies any ecchymosis, swelling or deformity. Has been ambulating since that time, but with pain. Normally uses a walker for ambulation. Lives alone. 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 Vital signs are stable on arrival. - History of Current Complaint Chief Complaint: EDExtremityLower Stated Complaint: FALL Time Seen by Provider: 03/26/18 08:33 Hx Obtained From: Patient Mechanism Of Injury: Twisted Onset of Pain: Hours Onset/Duration: Hours Severity Initially: Mild Severity Currently: Mild Pain Intensity: 0 Pain Scale Used: 0-10 Numeric Timing: Constant Location: Is Discrete @ - left lateral foot Associated Signs And Symptoms: Negative: Swelling, Redness, Bruising Aggravating Factor(s): Standing, Ambulation Alleviating Factor(s): Rest Able to Bear Weight: No - Risk Factors Gout Risk Factors: Negative DVT Risk Factors: Negative Septic Arthritis Risk Factor: Negative - Allergies/Home Medications Allergies/Adverse Reactions: Allergies Allergy/AdvReac Type Severity Reaction Status Date / Time No Known Allergies Allergy Verified 03/26/18 08:34 PMH/Surg Hx/FS Hx/Imm Hx Previously Healthy: Yes Endocrine/Hematology History: Reports: Hx Bone Marrow Disease Denies: Hx Diabetes Cardiovascular History: Reports: Hx Hypotension - orthostatic Denies: Hx Hypertension, Hx Pacemaker/ICD Respiratory History: Denies: Hx Asthma History: Reports: Other Problems/Disorders - UTI Denies: Hx Dialysis, Hx Renal Disease Musculoskeletal History: Reports: Hx Osteoporosis, Other Musculoskeletal History - 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 Sensory History: Reports: Hx Contacts or Glasses Denies: Hx Hearing Aid, Hx Hearing Problem Opthamlomology History: Reports: Hx Contacts or Glasses Neurological History: Reports: Other Neuro Impairments/Disorders - right craniatomy 1998, 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 Psychiatric History: Denies: Hx Panic Disorder - Cancer History Cancer Type, Location and Year: 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, BRAIN METS Hx Chemotherapy: Yes - SEVERAL TIMES Hx Radiation Therapy: Yes - SEVERAL TIMES - Surgical History Surgery Procedure, Year, and Place: BRAIN TUMOR REMOVED 1998,RT MASTECTOMY 96, BONE MARROW TRANSPLANT 97, BILATERAL FOOT BUNION REMOVAL,APPENDECTOMY, - Immunization History Hx Pertussis Vaccination: No Immunizations Up to Date: No Infectious Disease History: No Infectious Disease History: Denies: Traveled Outside the [place] in Last 30 Days - Social History Occupation: Unemployed Lives: Alone Alcohol Use: None Hx Substance Use: No Substance Use Type: Reports: None Hx Tobacco Use: No Smoking Status (MU): Never Smoked Tobacco Review of Systems Constitutional: Negative Negative: Fever, Chills, Fatigue, Skin Diaphoresis Negative: Palpitations, Chest Pain Negative: Shortness Of Breath, Cough Genitourinary: Negative Positive: no symptoms reported, see HPI Positive: Arthralgia Skin: Negative Neurological: Negative All Other Systems Reviewed And Are Negative: Yes Physical Exam Triage Information Reviewed: Yes Vital Signs On Initial Exam: Initial Vitals Temp Pulse Resp BP Pulse Ox 98.7 F 80 12 134/80 100 03/26/18 08:30 03/26/18 08:30 03/26/18 08:30 03/26/18 08:30 03/26/18 08:30 Vital Signs Reviewed: Yes Appearance: Positive: Well-Appearing, Well-Nourished Skin: Positive: Warm, Skin Color Reflects Adequate Perfusion Head/Face: Positive: Normal Head/Face Inspection Eyes: Positive: EOMI, KIERSTEN, Conjunctiva Clear Neck: Positive: Supple, No Lymphadenopathy Respiratory/Lung Sounds: Positive: Clear to Auscultation, Breath Sounds Present Cardiovascular: Positive: RRR, Pulses are Symmetrical in both Upper and Lower Extremities Musculoskeletal: Positive: Normal, Strength/ROM Intact Neurological: Positive: Sensory/Motor Intact, Alert, Oriented to Person Place, Time, Speech Normal Psychiatric: Positive: Normal, Affect/Mood Appropriate - Use Diagnostics - Vital Signs Vital Signs Temp Pulse Resp BP Pulse Ox 03/26/18 10:06 76 19 125/72 100 03/26/18 10:00 80 17 99 03/26/18 09:37 83 20 130/82 100 03/26/18 09:06 77 17 115/86 99 03/26/18 09:00 84 20 97 03/26/18 08:36 84 27 134/80 99 03/26/18 08:35 85 19 99 03/26/18 08:30 98.7 F 80 12 134/80 100 - Laboratory Lab Statement: Any lab studies that have been ordered have been reviewed, and results considered in the medical decision making process. Lower Extremity Course/Dx - Course Course Of Treatment: X-ray obtained. IMPRESSION: Deformity of the first metatarsal head likely due to chronic changes as there. appears to be erosive changes. There appears to be a fracture of the fifth metatarsal head as well as the base of the. fifth metatarsal. Posterior splint applied. She will follow-up with orthopedics next week. She is to remain nonweightbearing. - Diagnoses Differential Diagnosis/HQI/PQRI: Positive: Fracture (Closed), Fracture (Open), Strain Provider Diagnoses: Fracture of fifth metatarsal bone Discharge - Sign-Out/Discharge Documenting (check all that apply): Patient Departure - Discharge Plan Condition: Stable Disposition: HOME Prescriptions: traMADol TAB* [Ultram*] 50 mg PO Q8H PRN #12 tab MDD 3 PRN Reason: Pain Meds/Orders/Equipment: Home Care: Skilled Needs Location: None Selected Patient Education Materials: Foot Fracture in Adults (ED) Referrals: [facility] [Outside] - If Needed (Patient to receive MOW. First delivery will be tomorrow around 11am. ) [facility] [Outside] - If Needed (A / commode will be delivered to your home per your request. ) [facility] [Outside] - If Needed (A nurse from [facility] will contact you to set up an appointment to arrange shelter. ) Liban Jimenez MD [Medical Doctor] - Chelsey Srinivasan MD [Primary Care Provider] - Additional Instructions: Please follow up with orthopedics. Call today to make an appt non weigh bearing as much as possible Keep the splint dry - Billing Disposition and Condition Condition: STABLE Disposition: Home
[2018-03-26 14:41] VITALS: BP 141/100
== END 2018-03-26 14:40 | disposition home or self-care (01) ==
LOC: ED 08:28
DX: S92.352A Displaced fracture of fifth metatarsal bone, left foot, initial encounter for closed fracture (principal); W18.2XXA Fall in (into) shower or empty bathtub, initial encounter; Y92.9 Unspecified place or not applicable; Z60.2 Problems related to living alone; D75.9 Disease of blood and blood-forming organs, unspecified
CPT/HCPCS: 99283

== ENCOUNTER 2019-05-11 17:36 | Emergency (ER) | payer BC ==
--- OUTSIDE RECORDS SUMMARY | 2019-05-11 18:00 | XMS REPORT | Continuity of Care Document ---
:1955 External Reference #:[id number] Author Name Belle Moreno Address [address] [place] [address] Care Team Providers Name Role Phone Elvie Marte M.D. - Family Care Team Information [facility] Chelsey Srinivasan - Family Medicine Care Team Information [facility] - Care Team Information [facility] [phone] Gastroenterology Neri Robbins ([place] - Direct) Care Team Information [facility] - Otolaryngology Problems Active Problems Provider Date Malignant neoplasm of nipple and areola Elvie Marte M.D. Onset: of female breast Hyperlipidemia Elvie Marte M.D. Onset: 12/08/2011 Embolism from thrombosis of vein of Elvie Marte M.D. Onset: 2011 distal lower extremity Pronation Elvie Marte M.D. Onset: 12/08/2011 Malignant neoplasm of brain Elvie Marte M.D. Onset: 12/08/2011 Osteoporosis Elvie Marte M.D. Onset: 12/08/2011 Osteochondropathy Elvie Marte M.D. Onset: 12/08/2011 Adult health examination Elvie Marte M.D. Onset: 03/06/2012 Gynecologic examination Elvie Marte M.D. Onset: 03/06/2012 Impacted cerumen Chelsey Srinivasan M.D. Onset: 03/10/2015 Muscle weakness Chelsey Srinivasan M.D. Onset: 03/10/2015 Long-term current use of anticoagulant Chelsey Srinivasan M.D. Onset: 2016 Foot-drop Chelsey Srinivasan M.D. Onset: 02/26/2018 Overweight Chelsey Srinivasan M.D. Onset: 06/19/2018 Pulmonary embolism Chelsey Srinivasan M.D. Onset: 11/20/2018 Other hyperlipidemia Chelsey Srinivasan M.D. Onset: 11/20/2018 Social History Type Date Description Comments Sex Unknown Tobacco Use Start: Unknown Denies Tobacco Use ETOH Use Denies alcohol use Tobacco Use Start: Unknown Patient has never smoked Smoking Status Reviewed: 04/22/19 Patient has never smoked Exercise Exercises rarely doesn't go to [employer]. Allergies, Adverse Reactions, Alerts Active Allergies Reaction Severity Comments Date Penicillin pt states she may not be 05/29/2007 Medications Active Medications SIG Qnty Indications Ordering Date Provider Walker with wheels, seat, 1units Chelsey Bernal 04/03/2019 and hand brakes Keya Srinivasan mail to patient. Vitamin D3 1 by mouth every 8caps E55.9 Chelsey Bernal 01/01/2019 [id number] week x 8 wks Keya Srinivasan Capsules Prolia inject subq every 1ml M81.0 Chelsey Bernal 01/01/2019 60mg/ml Soln Prefill 6months. Keya Srinivasan Syringe Physical Therapy evaluate and treat E66.3 Chelsey Bernal 06/19/2018 balance issues Keya Srinivasan frequent falls exercise prescription for weight loss Left Leg Brace use as directed. One Chelsey Bernal 01/02/2018 please mail to Keya Srinivasan [facility]. Coumadin Take 1 And 1/2 104tabs Chelsey Bernal 08/12/2007 3mg Tablets Tablet Sunday And Keya Srinivasan Sunday And Take 1 Tablet The Other 5 Days A Week ([place]) Chlorpheniramine 1 po prn Unknown Maleate 4mg Tablets Calcium 600+D 1 by mouth every Unknown day [id number] Tablets Medications Administered in Office Medication SIG Qnty Indications Ordering Provider Date Injection Subcutaneous Or Chelsey Srinivasan M.D. 01/29/2019 Intramuscular Injection Immunizations CPT Code Status Date Vaccine Lot # [id number] Given 05/07/2018 Influenza Vac, Quadrivalent, Slit Virus, Im [id number] 99104 Given 12/05/2016 Zostivax [id number] Given 05/03/2016 Influenza Vac, Quadrivalent, Slit Virus, Im [id number] 26459 Given 06/07/2015 Influenza Vac, Quadrivalent, Slit Virus, Im [id number] 59838 Given 06/02/2014 DO Not Use Split Influenza Virus Vaccine [id number] 26323 Given 04/29/2013 DO Not Use Split Influenza Virus Vaccine [id number] 40354 Given 06/01/2012 DO Not Use Split Influenza Virus Vaccine [id number] 37165 Given 03/06/2012 Tdap Tetanus, W Pertussis [id number] 51831 Given 06/04/2007 DO Not Use Split Influenza Virus Vaccine [id number] Vital Signs Date Vital Result Comment 04/22/2019 2:05pm BP Systolic 116 mmHg BP Diastolic 76 mmHg Heart Rate 84 /min Body Temperature 97.7 F Respiratory Rate 16 /min Height 63.5 inches 5'3.50" Weight 144.00 lb BMI (Body Mass Index) 25.1 kg/m2 04/22/2019 2:04pm Height 63.5 inches 5'3.50" Weight 144.00 lb BMI (Body Mass Index) 25.1 kg/m2 Results Test Date Facility Test Result H/L Range Note Inr/Protime 04/16/2019 [facility] [place] 2.86 High 0.82-1.09 1 CBC Auto Diff 04/16/2019 [facility] [place] White Blood Count 5.5 10^3/uL Normal 3.5- 10.8 Red Blood Count 4.02 10^6/uL Normal 3.70-4.87 Hemoglobin 12.6 g/dL Normal 12.0-16.0 Hematocrit 38 % Normal 35-47 Mean Corpuscular Volume 94 fL Normal 80-97 Mean Corpuscular Hemoglobin 31 pg Normal 27-31 Mean Corpuscular HGB Conc 34 g/dL Normal 31-36 Red Cell Distribution Width 14 % Normal 10-15 Platelet Count 201 10^3/uL Normal 150-450 Mean Platelet Volume 6.6 fL Low 7.4-10.4 Abs Neutrophils 3.8 10^3/uL Normal 1.5-7.7 Abs Lymphocytes 1.1 10^3/uL Normal 1.0-4.8 Abs Monocytes 0.4 10^3/uL Normal 0-0.8 Abs Eosinophils 0.2 10^3/uL Normal 0-0.6 Abs Basophils 0.0 10^3/uL Normal 0-0.2 Abs Nucleated RBC 0.0 10^3/uL Granulocyte % 69.7 % Lymphocyte % 19.9 % Monocyte % 6.7 % Eosinophil % 3.4 % Basophil % 0.3 % Nucleated Red Blood Cells % 0.0 Comp Metabolic Panel 04/16/2019 [facility] [place] Sodium 142 mmol/L Normal 135-145 Potassium 4.1 mmol/L Normal 3.5-5.0 Chloride 108 mmol/L Normal 101-111 Co2 Carbon Dioxide 31 mmol/L Normal 22-32 Anion Gap 3 mmol/L Normal 2-11 Glucose 127 mg/dL High 70-100 Blood Urea Nitrogen 24 mg/dL Normal 6-24 Creatinine 0.76 mg/dL Normal 0.51-0.95 BUN/Creatinine Ratio 31.6 High 8-20 Calcium 8.7 mg/dL Normal 8.6-10.3 Total Protein 6.1 g/dL Low 6.4-8.9 Albumin 3.9 g/dL Normal 3.2-5.2 Globulin 2.2 g/dL Normal 2-4 Albumin/Globulin Ratio 1.8 Normal 1-3 Total Bilirubin 0.50 mg/dL Normal 0.2-1.0 Alkaline Phosphatase 80 U/L Normal 34-104 Alt 11 U/L Normal 7-52 Ast 17 U/L Normal 13-39 Egfr Non- 77.1 >60 Egfr 93.3 >60 2 Laboratory test finding 04/16/2019 [facility] [place] Lipase 11 U/L Normal 11.0-82.0 Troponin I 0.00 ng/mL <0.04 3 Urinalysis Profile 04/16/2019 [facility] [place] Urine Color Straw Urine Appearance Clear Urine Specific Jesse 1.008 Low 1.010-1.030 Urine pH 8.0 Normal 5-9 Urine Urobilinogen Negative Negative Urine Ketones Negative Negative Urine Protein Negative Negative Urine Leukocytes Negative Negative Urine Blood Negative Negative Urine Nitrite Negative Negative Urine Bilirubin Negative Negative Urine Glucose Negative Negative Laboratory test 04/07/2019 [facility] Inr (Fma) 3.1 High 2.0-3.0 finding (607)- - Laboratory test 03/06/2019 [facility] Inr (a) 2.0 2.0-3.0 finding (607)- - Laboratory test 02/14/2019 [facility] Inr (a) 3.6 High 2.0-3.0 finding (607)- - Laboratory test 01/17/2019 [facility] [place] Point of Care 82 mg/dL Normal 70-100 4 finding Glucose Laboratory test 01/15/2019 [facility] In[facility] (a) 2.3 2.0-3.0 finding (607)- - Laboratory test 12/16/2018 [facility] In[facility] (a) 1.8 Low 2.0-3.0 finding (607)- - Laboratory test 12/04/2018 Temo Bal([facility]) TSH 2.03 0.50-6.00 finding mIU/L Vitamin D25 23 Low 30-100 CBC Electronic a 12/04/2018 Temo Mally([facility]) WBC 6.1 x10^3/UL 4.0- 10.0 RBC 4.44 x10^6/UL 3.93-6.00 HGB 13.9 g/dL 12.0-17.0 HCT 43 % 35-50 MCV 96.2 fL High 80.0-95.0 MCH 31.3 pg 25.6-32.2 MCHC 32.6 g/dL 32.2-36.0 RDW-CV 13.4 % 11.6-14.4 PLT 267 x10^3/UL 163-400 MPV 8.8 fL Low 9.4-12.4 January# 3.69 x10^3/UL 1.56-6.13 Lymph# 1.69 x10^3/UL 1.18-3.74 Milam# 0.48 x10^3/UL 0.24-0.82 Eos # 0.2 x10^3/UL 0.0-0.5 Baso # 0.01 x10^3/UL 0.01-0.08 January% 61.0 % 34.0-70.0 Lymph % 27.9 % 20.0-52.0 Milam% 7.9 % 5.0-12.0 Eos% 2.8 % 0.7-7.0 Baso% 0.2 % 0.1-1.2 Comprehensive Metabolic 12/04/2018 [facility]) Sodium 144 mEq/L 134-149 Prof Potassium 4.3 mEq/L 3.6-5.5 Chloride 102 mEq/L 94-112 Carbon Dioxide 27 mEq/L 21-32 Glucose 93 mg/dL 70-105 BUN 26 mg/dL 6-26 Creatinine 0.9 mg/dL 0.6-1.4 BUN/Creat Ratio 28.9 CALC 8.0-36.0 Calcium 9.7 mg/dL 8.6-10.2 Total Protein 7.1 g/dL 6.4-8.3 Albumin 4.7 g/dL 3.8-5.5 Globulin 2.4 g/dL 2.0-4.8 A/G Ratio 2.0 CALC 0.6-2.3 Alk. Phosphatase 109 U/L 30-110 Alt (SGPT) 17 U/L 7-35 Ast (Sgot) 22 U/L 5-34 Total Bilirubin 0.6 mg/dL 0.2-1.3 GFR Non- >60 ml/min/1.73m^ >=60 GFR >60 ml/min/1.73m^ >=60 Lipid Profile 12/04/2018 [facility](a) Cholesterol 287 mg/dL High 120-200 Triglycerides 141 mg/dL 30-200 HDL Cholesterol 63 mg/dL 30-85 LDL (Calculated) 196 CALC High 0-129 VLDL Cholesterol 28 mg/dL 0-50 HDL Risk Factor 4.6 CALC High 0.0-4.4 Laboratory test finding 11/14/2018 [facility] Inr ([facility]ma) 1.9 Low 2.0- 3.0 (607)- - 1 Standard intensity warfarin therapeutic range: 2.0-3.0 High intensity warfarin therapeutic range: 2.5-3.5 2 Because ethnic data is not always readily available, this report includes an eGFR for both -Americans and non- Americans. The National Kidney Disease Education Program (NKDEP) does not endorse the use of the MDRD equation for patients that are not between the ages of 18 and 70, are , have extremes of body size, muscle mass, or nutritional status, or are non- or non-. According to the National Kidney Foundation, irrespective of diagnosis, the stage of the disease is based on the level of kidney function: Stage Description GFR(mL/min/1.73 m(2)) 1 Kidney damage with normal or decreased GFR 90 2 Kidney damage with mild decrease in GFR 60-89 3 Moderate decrease in GFR 30-59 4 Severe decrease in GFR 15-29 5 Kidney failure <15 (or dialysis) 3 Troponin-I testing on Plasma Separator Tubes (PST) has a known false positive rate of 0.20-0.40%. All positive troponins reflex immediately to secondary confirmatory testing. Using the [employer] Save[employer] Access Immunoassay systems, the 99th percentile upper reference limit was demonstrated to be < 0.03 ng/mL. 4 Oxyacetylene Welder: [id number] Procedures Date Code Description Status 04/07/2019 23827 Finger Or Heel Stick Completed 03/06/2019 21624 Finger Or Heel Stick Completed 02/14/2019 55343 Finger Or Heel Stick Completed 01/29/2019 87217 Injection Subcutaneous Or Intramuscular Completed 01/15/2019 88175 Finger Or Heel Stick Completed 12/30/2018 21418 Dxa Bone Density Study One Or More Sites Axial Completed Skeleton 12/30/2018 [id number] Bone Mineral Density Test Completed 12/16/2018 36323 Finger Or Heel Stick Completed 11/30/2018 65108 Remove Impact Cerumen Irrigati Completed 11/14/2018 30031 Finger Or Heel Stick Completed 07/08/2018 [id number] Mammogram Completed 07/04/2017 [id number] Mammogram Completed 01/03/2017 [id number] Mammogram Completed 01/03/2016 [id number] Mammogram Completed 01/01/2015 [id number] Mammogram Completed 07/14/2014 [id number] Colonoscopy Completed 07/13/2014 [id number] Colonoscopy Completed 12/31/2013 [id number] Mammogram Completed 12/19/2012 [id number] Mammogram Completed 12/28/2011 [id number] Mammogram Completed 12/26/2010 [id number] Mammogram Completed 09/27/2009 [id number] Mammogram Completed 09/25/2008 [id number] Mammogram Completed 10/04/2007 [id number] Mammogram Completed 06/20/2007 [id number] Colonoscopy Completed Medical Devices Description No Information Available Encounters Type Date Location Provider Dx Diagnosis Office Visit 01/01/2019 1:40p Main Office Chelsey Srinivasan, R13.19 Other dysphagia Taina.DKendrick E55.9 Vitamin D deficiency, unspecified E78.49 Other hyperlipidemia M81.0 Age-related osteoporosis w/o current pathological fracture Office Visit 11/30/2018 11:30a Main Office Chelsey Bernal H61.23 Impacted cergeorgien, Keya Srinivasan bilateral Office Visit 11/20/2018 3:00p Main Office Chelsey Bernal Z00.01 Encounter for Keya Srinivasan general adult medical exam w abnormal findings M21.372 Foot drop, left foot C50.011 Malignant neoplasm of nipple and areola, right female breast E78.49 Other hyperlipidemia M85.80 Oth disrd of bone density and structure, unspecified site R13.10 Dysphagia, unspecified R53.1 Weakness H61.21 Impacted cerumen, right ear E55.9 Vitamin D deficiency, unspecified Assessments Date Code Description Provider 04/22/2019 R11.2 Nausea with vomiting, unspecified Belle Moreno 04/07/2019 Z79.01 senior living (current) use of anticoagulants Chelsey Srinivasan M.D. 04/07/2019 I82.402 Acute embolism and thombos unsp deep Chelsey Srinivasan M.D. veins of l low extrem 03/06/2019 Z79.01 senior living (current) use of anticoagulants Chelsey Srinivasan M.D. 03/06/2019 I82.402 Acute embolism and thombos unsp deep Chelsey Srinivasan M.D. veins of l low extrem 02/14/2019 Z79.01 senior living (current) use of anticoagulants Chelsey Srinivasan M.D. 02/14/2019 I82.402 Acute embolism and thombos unsp deep Chelsey Srinivasan M.D. veins of l low extrem 01/29/2019 M81.0 Age-related osteoporosis w/o current Chelsey Srinivasan M.D. pathological fracture 01/15/2019 Z79.01 oysterman (current) use of anticoagulants Chelsey Srinivasan M.D. 01/15/2019 I82.402 Acute embolism and thombos unsp deep Chelsey Srinivasan M.D. veins of l low extrem 01/01/2019 R13.19 Other dysphagia Chelsey Srinivasan M.D. 01/01/2019 E55.9 Vitamin D deficiency, unspecified Chelsey Srinivasan M.D. 01/01/2019 E78.49 Other hyperlipidemia Chelsey Srinivasan M.D. 01/01/2019 M81.0 Age-related osteoporosis without current Chelsey Srinivasan M.D. pathological fractu 12/30/2018 M81.0 Age-related osteoporosis without current Chelsey Srinivasan M.D. pathological fracture 12/16/2018 Z79.01 senior living (current) use of anticoagulants Chelsey Srinivasan M.D. 12/16/2018 I82.402 Acute embolism and thombos unsp deep Chelsey Srinivasan M.D. veins of l low extrem 12/04/2018 Z00.01 Encounter for general adult medical exam Chelsey Srinivasan M.D. w abnormal findings 12/04/2018 E55.9 Vitamin D deficiency, unspecified Chelsey Srinivasan M.D. 11/30/2018 H61.23 Impacted cerumen, bilateral Chelsey Srinivasan M.D. 11/20/2018 Z00.01 Encounter for general adult medical Chelsey Srinivasan M.D. examination with abnorma 11/20/2018 M21.372 Foot drop, left foot Chelsey Srinivasan M.D. 11/20/2018 C50.011 Malignant neoplasm of nipple and areola, Chelsey Srinivasan M.D. right female breast 11/20/2018 E78.49 Other hyperlipidemia Chelsey Srinivasan M.D. 11/20/2018 M85.80 Other specified disorders of bone density Chelsey Srinivasan M.D. and structure, uns 11/20/2018 R13.10 Dysphagia, unspecified Chelsey Srinivasan M.D. 11/20/2018 R53.1 Weakness Chelsey Srinivasan M.D. 11/20/2018 H61.21 Impacted cerumen, right ear Chelsey Sriniavsan M.D. 11/20/2018 E55.9 Vitamin D deficiency, unspecified Chelsey Srinivasan M.D. 11/14/2018 Z79.01 senior living (current) use of anticoagulants Chelsey Srinivasan M.D. 11/14/2018 I82.402 Acute embolism and thombos unsp deep Chelsey Srinivasan M.D. veins of l low extrem Plan of Treatment Future Appointment(s):05/08/2019 1:30 pm - Chelsey Srinivasan M.D. at Main Zuiadw5007/02/2019 2:00 pm - Chelsey Srinivasan M.D. at Main Vetxjs0804/22/2019 - Ronan Moreno-MANJIT11.2 Nausea with vomiting, unspecifiedAllComments: Medication Management Patient Understands medications she's taking? Yes No Are there Barriers to Adherence? Yes No Has the patient been asked about herbal supplements and therapies, and OTC meds? Yes No Care Plan1. Patient has been queried about patient's goals/preferences and functional/lifestyle goals at relevant visits. If relevant, describe: na2. Treatment goals as explained to the patient: aboveobservation , management of chronic medical problems 3. Are there barriers to meeting treatment goals? Yes No 4. Self-Management goals as described to the patient: Yes No no further rx is needed at this time , call if sx recurrotherwise f/u routine as scheduled for labs and pcp f/u Functional Status Description No Information Available Mental Status Description No Information Available Referrals Refer to Reason for Referral Status Appt Date Neri Robbins ([place] - Direct) Dysphagia jw Scheduled 12/17/2018 [address] [place] [address] [phone]
[2019-05-11] MEDS ORDERED: NS 0.9% 1000 ML** 1,000 ML IV ONE (18:26)
[2019-05-11] MEDS ORDERED: Ondansetron INJ* 2 MG/ML VIAL IV ONE (18:46)
--- NOTE | 2019-05-11 18:48 | ED ---
Complex/Multi-Sys Presentation - HPI Summary HPI Summary: 63-year-old female presents with sudden onset weakness today. She is feeling very slightly nauseous. She had some vomiting. No diarrhea. no chest pain or shortness of breath. She states she is feeling better. she did not have anything to eat or drink today. no abd pain. She denies any palpitations. She denies any cough. No urinary symptoms. no recent illness. states after ems ride is feeling better. she states was dizzy but that has since resolved. 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 - History Of Current Complaint Chief Complaint: EDWeakness Time Seen by Provider: 05/11/19 18:22 - Allergies/Home Medications Allergies/Adverse Reactions: Allergies Allergy/AdvReac Type Severity Reaction Status Date / Time grass pollen Allergy Mild Sneezing Verified 01/01/19 09:42 mold Allergy Mild Sneezing Verified 01/01/19 09:42 PMH/Surg Hx/FS Hx/Imm Hx Endocrine/Hematology History: Reports: Hx Bone Marrow Disease Denies: Hx Diabetes Cardiovascular History: Reports: Hx Hypotension - orthostatic Denies: Hx Hypertension, Hx Pacemaker/ICD Respiratory History: Denies: Hx Asthma History: Reports: Other Problems/Disorders - UTI Denies: Hx Dialysis, Hx Renal Disease Musculoskeletal History: Reports: Hx Osteoporosis, Other Musculoskeletal History - 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 Sensory History: Reports: Hx Contacts or Glasses Denies: Hx Hearing Aid, Hx Hearing Problem Opthamlomology History: Reports: Hx Contacts or Glasses Neurological History: Reports: Other Neuro Impairments/Disorders - right craniatomy 1998, 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 Psychiatric History: Denies: Hx Panic Disorder - Cancer History Cancer Type, Location and Year: 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, BRAIN METS Hx Chemotherapy: Yes - SEVERAL TIMES Hx Radiation Therapy: Yes - SEVERAL TIMES - Surgical History Surgery Procedure, Year, and Place: BRAIN TUMOR REMOVED 1998,RT MASTECTOMY , BONE MARROW TRANSPLANT 97, BILATERAL FOOT BUNION REMOVAL,APPENDECTOMY, fluid on brain removed november Infectious Disease History: No Infectious Disease History: Denies: Traveled Outside the [place] in Last 30 Days - Family History Known Family History: Positive: Cardiac Disease, Diabetes, Other - cancer - Social History Alcohol Use: None Hx Substance Use: No Substance Use Type: Reports: None Hx Tobacco Use: No Smoking Status (MU): Never Smoked Tobacco Review of Systems Negative: Fever Positive: Vomiting, Nausea Neurological: Other - lightheaded All Other Systems Reviewed And Are Negative: Yes Physical Exam Triage Information Reviewed: Yes Vital Signs On Initial Exam: Initial Vitals Pulse Resp BP Pulse Ox 86 10 128/81 99 05/11/19 17:47 05/11/19 17:47 05/11/19 17:47 05/11/19 17:47 Vital Signs Reviewed: Yes Appearance: Positive: Well-Appearing Skin: Positive: Warm, Dry Head/Face: Positive: Normal Head/Face Inspection Eyes: Positive: Normal, EOMI, KIERSTEN, Conjunctiva Clear ENT: Positive: Pharynx normal, TMs normal Respiratory/Lung Sounds: Positive: Clear to Auscultation, Breath Sounds Present Cardiovascular: Positive: Normal, RRR Abdomen Description: Positive: Nontender, Soft Bowel Sounds: Positive: Present Neurological: Positive: Sensory/Motor Intact, Alert, Oriented to Person Place, Time, CN Intact II-III, Other - slurried speech which is patient baseline Psychiatric: Positive: Normal Diagnostics - Vital Signs Vital Signs Temp Pulse Resp BP Pulse Ox 05/11/19 17:48 96.0 F 86 18 128/81 99 05/11/19 17:47 86 10 128/81 99 - Laboratory Result Diagrams: 05/11/19 19:08 05/11/19 19:08 Lab Statement: Any lab studies that have been ordered have been reviewed, and results considered in the medical decision making process. - EKG No standard instances Cardiac Rate: NL EKG Rhythm: Sinus Rhythm EKG Comparison: No Significant Change Summary of EKG Findings: sinus rhythm Re-Evaluation - Re-Evaluation First Eval Re-Evaluation Time: 20:31 Change: Improved Comment: feels completely better, tolerated sandwich in ED Complex Multi-Symp Course/Dx Course Of Treatment: 63-year-old female presents with sudden onset weakness today. She is feeling very slightly nauseous. She had some vomiting. No diarrhea. no chest pain or shortness of breath. She states she is feeling better. she did not have anything to eat or drink today. no abd pain. She denies any palpitations. She denies any cough. No urinary symptoms. no recent illness. states after ems ride is feeling better. she states was dizzy but that has since resolved. 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 on exam lungs CTA. RRR. normal neuro exam beside chronic slurred speech. ekg sinus rhythm. wbc 11.5. troponin zero. ck normal. patient feels completely back to normal after fluids and zofran. able to tolerate sandwich in ED. will discharge to have follow up with primary. patient understand and agrees with plan. - Diagnoses Differential Diagnoses/HQI/PQRI: Cardiac Ischemia, Sepsis, Urinary Tract Infection Provider Diagnoses: Weakness, Nausea Discharge ED - Sign-Out/Discharge Documenting (check all that apply): Patient Departure Patient Received Moderate/Deep Sedation with Procedure: No - Discharge Plan Condition: Good Disposition: HOME Patient Education Materials: Weakness (ED) Referrals: Chelsey Srinivasan MD [Primary Care Provider] - Additional Instructions: drink plenty of fluids follow up with primary within 5 days Return to ED if develop any new or worsening symptoms - Billing Disposition and Condition Condition: GOOD Disposition: Home
[2019-05-11 19:33] LABS: ABS Lymphocytes 1.1 10^3/ul (1.0-4.8); ABS Monocytes 0.7 10^3/ul (0-0.8); ABS Neutrophils 9.6 10^3/ul (1.5-7.7); Eosinophil % 0.4 %; Hematocrit 39 % (35-47); Hemoglobin 12.9 g/dL (12.0-16.0); Lymphocyte % 9.7 %; Mean Corpuscular HGB Conc 33 g/dL (31-36); Mean Corpuscular Hemoglobin 31 pg (27-31); Mean Corpuscular Volume 96 fL (80-97); Mean Platelet Volume 6.8 fL (7.4-10.4); Nucleated Red Blood Cells % 0.1; Platelet Count 230 10^3/uL (150-450); Red Blood Count 4.11 10^6 /uL (3.70-4.87); Red Cell Distribution Width 15 % (10-15); White Blood Count 11.5 10^3/uL (3.5-10.8)
[2019-05-11 19:59] LABS: Albumin 4.1 g/dL (3.2-5.2); Albumin/Globulin Ratio 1.5 (1-3); BUN/Creatinine Ratio 34.2 (8-20); Calcium 8.9 mg/dL (8.6-10.3); EGFR African American 89.2 (>60); EGFR Non-African American 73.7 (>60); Globulin 2.8 g/dL (2-4); Potassium 4.1 mmol/L (3.5-5.0); Total Bilirubin 0.6 mg/dL (0.2-1.0); Total Protein 6.9 g/dL (6.4-8.9)
[2019-05-11 20:37] LABS: TSH (Thyroid Stimulating Horm) 1.2 mcIU/mL (0.34-5.60)
[2019-05-11 21:31] VITALS: BP 127/87
== END 2019-05-11 21:30 | disposition home or self-care (01) ==
LOC: ED 17:36
DX: R53.1 Weakness (principal); R11.0 Nausea; Z85.3 Personal history of malignant neoplasm of breast; Z85.841 Personal history of malignant neoplasm of brain; Z90.11 Acquired absence of right breast and nipple; Z79.01 Long term (current) use of anticoagulants; Z79.899 Other long term (current) drug therapy
CPT/HCPCS: 36415; 80053; 82550; 83605; 83735; 84443; 84484; 85025; 93005; 96361; 96374; 99283; J2405

== ENCOUNTER 2019-06-17 16:52 | Emergency (ER) | payer BC ==
[2019-06-17] MEDS ORDERED: NS 0.9% 1000 ML** 1,000 ML IV ONE (16:54)
[2019-06-17] MEDS ORDERED: Ondansetron INJ* 2 MG/ML VIAL IV ONE (16:54)
--- NOTE | 2019-06-17 16:54 | ED ---
GI/ HPI - HPI Summary HPI Summary: 63 female presents with nausea and vomiting. She tells me that she was outside walking her dog and felt nauseous and vomited x1. She called EMS and was brought to the ED. She is feeling better now and has not vomited again. She felt well this morning. She had no associated fever, recent illness ,SOB, chest pain, abdominal pain, headache, or dizziness. 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 - History of Current Complaint Time Seen by Provider: 06/17/19 16:53 Stated Complaint: NAUSEA/VOMITING PER EMS Hx Obtained From: Patient Current Severity: None - Additional Pertinent History Primary Care Physician: [id number] - Allergy/Home Medications Allergies/Adverse Reactions: Allergies Allergy/AdvReac Type Severity Reaction Status Date / Time grass pollen Allergy Mild Sneezing Verified 06/17/19 16:59 mold Allergy Mild Sneezing Verified 06/17/19 16:59 PMH/Surg Hx/FS Hx/Imm Hx Endocrine/Hematology History: Reports: Hx Bone Marrow Disease Denies: Hx Diabetes Cardiovascular History: Reports: Hx Hypotension - orthostatic Denies: Hx Hypertension, Hx Pacemaker/ICD Respiratory History: Denies: Hx Asthma History: Reports: Other Problems/Disorders - UTI Denies: Hx Dialysis, Hx Renal Disease Musculoskeletal History: Reports: Hx Osteoporosis, Other Musculoskeletal History - 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 Sensory History: Reports: Hx Contacts or Glasses Denies: Hx Hearing Aid, Hx Hearing Problem Opthamlomology History: Reports: Hx Contacts or Glasses Neurological History: Reports: Other Neuro Impairments/Disorders - right craniatomy 1998, 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 Psychiatric History: Denies: Hx Panic Disorder - Cancer History Cancer Type, Location and Year: 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, BRAIN METS Hx Chemotherapy: Yes - SEVERAL TIMES Hx Radiation Therapy: Yes - SEVERAL TIMES - Surgical History Surgery Procedure, Year, and Place: BRAIN TUMOR REMOVED 1998,RT MASTECTOMY , BONE MARROW TRANSPLANT 97, BILATERAL FOOT BUNION REMOVAL,APPENDECTOMY, fluid on brain removed november - Family History Known Family History: Positive: Cardiac Disease, Diabetes, Other - cancer - Social History Alcohol Use: None Hx Substance Use: No Substance Use Type: Reports: None Hx Tobacco Use: No Smoking Status (MU): Never Smoked Tobacco Review of Systems Constitutional: Negative Eyes: Negative ENT: Negative Cardiovascular: Negative Respiratory: Negative Positive: Vomiting, Nausea Genitourinary: Negative Musculoskeletal: Negative Neurological: Negative Psychological: Normal All Other Systems Reviewed And Are Negative: No Physical Exam - Summary Physical Exam Summary: GENERAL: NAD. SKIN: No rashes, sores, or open wounds. HEENT: Head: AT/NC Eyes: PERRLA. EOM intact. Conjunctiva clear without inflammation or discharge. Ears: Hearing grossly normal. TMs intact, no bulging, erythema, or edema. Nose: Nasal mucosa pink and moist. NTTP maxillary and frontal sinus. Throat: Posterior oropharynx without exudates, erythema, or tonsillar enlargement. Uvula midline. NECK: Supple. Nontender. No lymphadenopathy. CHEST: CTAB. No r/r/w. No accessory muscle use. Breathing comfortably and in no distress. CV: RRR. Pulses intact. Brisk cap refill. ABDOMEN: Soft. NTTP. No distention or guarding. No CVA tenderness. Bowel sounds present MSK: FROM and 5/5 strength throughout. No edema. NEURO: Alert. PSYCH: Age appropriate behavior. Triage Information Reviewed: Yes Vital Signs On Initial Exam: Vital Signs: Temp Pulse Resp BP Pulse Ox 97.2 F 81 15 112/72 96 06/17/19 16:57 06/17/19 16:57 06/17/19 16:57 06/17/19 16:57 06/17/19 16:57 Vital Signs Reviewed: Yes Procedures - Sedation Patient Received Moderate/Deep Sedation with Procedure: No Diagnostics - Laboratory Lab Results: Laboratory Tests 06/17/19 06/17/19 06/17/19 17:29 17:29 17:29 WBC 7.1 RBC 4.15 Hgb 13.3 Hct 38 MCV 93 MCH 32 H MCHC 35 RDW 14 Plt Count 260 MPV 6.5 L Neut % (Auto) 70.8 Lymph % (Auto) 20.6 [place] % (Auto) 6.6 Eos % (Auto) 1.6 Baso % (Auto) 0.4 Absolute Neuts (auto) 5.0 Absolute Lymphs (auto) 1.5 Absolute Monos (auto) 0.5 Absolute Eos (auto) 0.1 Absolute Basos (auto) 0.0 Absolute Nucleated RBC 0.0 Nucleated RBC % 0.0 Sodium 142 Potassium 3.8 Chloride 105 Carbon Dioxide 30 Anion Gap 7 BUN 21 Creatinine 0.89 Est GFR ( Amer) 77.8 Est GFR (Non-Af Amer) 64.3 BUN/Creatinine Ratio 23.6 H Glucose 104 H Lactic Acid 1.4 Calcium 9.4 Magnesium 2.1 Total Bilirubin 0.50 AST 21 ALT 15 Alkaline Phosphatase 89 Troponin I 0.00 Total Protein 6.8 Albumin 4.0 Globulin 2.8 Albumin/Globulin Ratio 1.4 Result Diagrams: 06/17/19 17:29 06/17/19 17:29 Lab Statement: Any lab studies that have been ordered have been reviewed, and results considered in the medical decision making process. - EKG 1 EKG Comparison: Other Summary of EKG Findings: 77 bpm NSR. No STEMI as read by Dr. Simone ALMARAZ Course/Dx - Course Course Of Treatment: In the ED course pt was given zofran and 1L NS for her nausea with complete relief. She felt her symptoms completely resolve and tolerated po jello and crackers without difficulty. Labwork unremarkable. Trop neg. EKG WNL. Discussed with pt to advance diet alowly as tolerated and return to the ED for any worsening symptoms. - Diagnoses Provider Diagnoses: Nausea and vomiting Discharge ED - Sign-Out/Discharge Documenting (check all that apply): Patient Departure - Discharge Plan Condition: Stable Disposition: HOME Patient Education Materials: Acute Nausea and Vomiting (ED) Referrals: Chelsey Srinivasan MD [Primary Care Provider] - Additional Instructions: If you develop a fever, shortness of breath, chest pain, new or worsening symptoms - please call your PCP or go to the ED immediately. Advance your diet slowly and as tolerated - Billing Disposition and Condition Condition: STABLE Disposition: Home - Attestation Statements Provider Attestation: I was available for consultation for this patient. I did not evaluate the patient or participate in any medical decision making or disposition decisions unless I am specifically named in the chart as having consulted on the patient. If I have consulted on the patient, please see my own ED note on the patient encounter. Fernando Nichols MD
[2019-06-17 17:34] LABS: ABS Eosinophils 0.1 10^3/ul (0-0.6); ABS Lymphocytes 1.5 10^3/ul (1.0-4.8); ABS Monocytes 0.5 10^3/ul (0-0.8); Eosinophil % 1.6 %; Hematocrit 38 % (35-47); Hemoglobin 13.3 g/dL (12.0-16.0); Lymphocyte % 20.6 %; Mean Corpuscular HGB Conc 35 g/dL (31-36); Mean Corpuscular Hemoglobin 32 pg (27-31); Mean Corpuscular Volume 93 fL (80-97); Mean Platelet Volume 6.5 fL (7.4-10.4); Platelet Count 260 10^3/uL (150-450); Red Blood Count 4.15 10^6 /uL (3.70-4.87); Red Cell Distribution Width 14 % (10-15); White Blood Count 7.1 10^3/uL (3.5-10.8)
[2019-06-17 17:51] LABS: Albumin/Globulin Ratio 1.4 (1-3); BUN/Creatinine Ratio 23.6 (8-20); Calcium 9.4 mg/dL (8.6-10.3); EGFR African American 77.8 (>60); EGFR Non-African American 64.3 (>60); Globulin 2.8 g/dL (2-4); Magnesium 2.1 mg/dL (1.9-2.7); Potassium 3.8 mmol/L (3.5-5.0); Total Bilirubin 0.5 mg/dL (0.2-1.0); Total Protein 6.8 g/dL (6.4-8.9)
--- OUTSIDE RECORDS SUMMARY | 2019-06-17 18:31 | XMS REPORT | Continuity of Care Document ---
:1955 External Reference #:[id number] Author Name Belle Moreno Address [address] [place] [address] Care Team Providers Name Role Phone Elvie Marte M.D. 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 01/29/2019 Intramuscular Injection Immunizations CPT Code Status Date Vaccine Lot # [id number] Given 05/17/2019 Influenza Virus Vaccine, Recombinant Dna, [id number] [place] [id number] Given 05/07/2018 Influenza Vac, Quadrivalent, Slit Virus, Im [id number] 17776 Given 12/05/2016 Zostivax [id number] Given 05/03/2016 Influenza Vac, Quadrivalent, Slit Virus, Im [id number] 16782 Given 06/07/2015 Influenza Vac, Quadrivalent, Slit Virus, Im [id number] 98181 Given 06/02/2014 DO Not Use Split Influenza Virus Vaccine [id number] 57947 Given 04/29/2013 DO Not Use Split Influenza Virus Vaccine [id number] 76688 Given 06/01/2012 DO Not Use Split Influenza Virus Vaccine [id number] 20450 Given 03/06/2012 Tdap Tetanus, W Pertussis [id number] 03648 Given 06/04/2007 DO Not Use Split Influenza Virus Vaccine [id number] Vital Signs Date Vital Result Comment 05/17/2019 10:04am BP Systolic 100 mmHg BP Diastolic 70 mmHg Heart Rate 64 /min Body Temperature 98.2 F Respiratory Rate 16 /min Height 63.5 inches 5'3.50" Weight 144.00 lb BMI (Body Mass Index) 25.1 kg/m2 04/22/2019 2:05pm BP Systolic 116 mmHg BP Diastolic 76 mmHg Heart Rate 84 /min Body Temperature 97.7 F Respiratory Rate 16 /min Height 63.5 inches 5'3.50" Weight 144.00 lb BMI (Body Mass Index) 25.1 kg/m2 Results Test Date Facility Test Result H/L Range Note Laboratory test 05/17/2019 [facility] ([facility]) 2.8 2.0-3.0 finding (607)- - CBC Auto Diff 05/11/2019 [facility] White Blood 11.5 10^3/uL High 3.5-10.8 Count Red Blood Count 4.11 10^6/uL Normal 3.70-4.87 Hemoglobin 12.9 g/dL Normal 12.0-16.0 Hematocrit 39 % Normal 35-47 Mean Corpuscular Volume 96 fL Normal 80-97 Mean Corpuscular Hemoglobin 31 pg Normal 27-31 Mean Corpuscular HGB Conc 33 g/dL Normal 31-36 Red Cell Distribution Width 15 % Normal 10-15 Platelet Count 230 10^3/uL Normal 150-450 Mean Platelet Volume 6.8 fL Low 7.4-10.4 Abs Neutrophils 9.6 10^3/uL High 1.5-7.7 Abs Lymphocytes 1.1 10^3/uL Normal 1.0-4.8 Abs Monocytes 0.7 10^3/uL Normal 0-0.8 Abs Eosinophils 0.0 10^3/uL Normal 0-0.6 Abs Basophils 0.0 10^3/uL Normal 0-0.2 Abs Nucleated RBC 0.0 10^3/uL Granulocyte % 83.8 % Lymphocyte % 9.7 % Monocyte % 6.0 % Eosinophil % 0.4 % Basophil % 0.1 % Nucleated Red Blood Cells % 0.1 Laboratory test finding 05/11/2019 [facility] Lactic Acid 1.8 mmol/L Normal 0.5- 2.0 1 Comp Metabolic Panel 05/11/2019 [facility] Sodium 142 mmol/L Normal 135-145 Potassium 4.1 mmol/L Normal 3.5-5.0 Chloride 107 mmol/L Normal 101-111 Co2 Carbon Dioxide 29 mmol/L Normal 22-32 Anion Gap 6 mmol/L Normal 2-11 Glucose 95 mg/dL Normal 70-100 Blood Urea Nitrogen 27 mg/dL High 6-24 Creatinine 0.79 mg/dL Normal 0.51-0.95 BUN/Creatinine Ratio 34.2 High 8-20 Calcium 8.9 mg/dL Normal 8.6-10.3 Total Protein 6.9 g/dL Normal 6.4-8.9 Albumin 4.1 g/dL Normal 3.2-5.2 Globulin 2.8 g/dL Normal 2-4 Albumin/Globulin Ratio 1.5 Normal 1-3 Total Bilirubin 0.60 mg/dL Normal 0.2-1.0 Alkaline Phosphatase 85 U/L Normal 34-104 Alt 13 U/L Normal 7-52 Ast 19 U/L Normal 13-39 Egfr Non- 73.7 >60 Egfr 89.2 >60 2 Laboratory test finding 05/11/2019 [facility] Magnesium 2.0 mg/dL Normal 1.9- 2.7 Creatine Kinase(CK) 85 U/L Normal 10-223 Troponin I 0.00 ng/mL <0.04 3 TSH (Thyroid Stim Horm) 1.20 mcIU/mL Normal 0.34-5.60 Laboratory test finding 05/10/2019 [facility] ([facility]) 3.3 High 2.0 -3.0 (607)- - Laboratory test finding 05/08/2019 [facility] ([facility]) 6.4 High 2.0 -3.0 (607)- - Urinalysis Profile 04/16/2019 [facility] Urine Color Straw Urine Appearance Clear Urine Specific [place] 1.008 Low 1.010-1.030 Urine pH 8.0 Normal 5-9 Urine Urobilinogen Negative Negative Urine Ketones Negative Negative Urine Protein Negative Negative Urine Leukocytes Negative Negative Urine Blood Negative Negative Urine Nitrite Negative Negative Urine Bilirubin Negative Negative Urine Glucose Negative Negative Laboratory test finding 04/16/2019 [facility] Lipase 11 U/L Normal 11.0-82.0 Troponin I 0.00 ng/mL <0.04 4 Comp Metabolic Panel 04/16/2019 [facility] Sodium 142 mmol/L Normal 135-145 Potassium 4.1 [...] Egfr Non- 77.1 >60 Egfr 93.3 >60 5 CBC Auto Diff 04/16/2019 [facility] White Blood Count 5.5 10^3/uL Normal 3.5- [...] % Nucleated Red Blood Cells % 0.0 Inr/Protime 04/16/2019 [facility] Inr 2.86 High 0.82-1.09 6 Laboratory test 04/07/2019 [facility] ([facility]) 3.1 High 2.0-3.0 finding (607)- - Laboratory test 03/06/2019 [facility] ([facility]) 2.0 2.0-3.0 finding (607)- - Laboratory test 02/14/2019 [facility] ([facility]) 3.6 High 2.0-3.0 finding (607)- - Laboratory test 01/17/2019 [facility] Point of Care 82 mg/dL Normal 70-100 7 finding Glucose Laboratory test 01/15/2019 [facility] ([facility]) 2.3 2.0-3.0 finding (607)- - Laboratory test 12/16/2018 [facility] ([facility]) 1.8 Low 2.0-3.0 finding (607)- - Laboratory test 12/04/2018 [facility]) TSH 2.03 mIU/L 0.50-6.00 finding Vitamin D25 23 Low 30-100 CBC Electronic [facility] 12/04/2018 [facility]) WBC 6.1 x10^3/UL 4.0- 10.0 RBC 4.44 x10^6/UL 3.93-6.00 HGB 13.9 g/dL 12.0-17.0 HCT 43 % 35-50 MCV 96.2 fL High 80.0-95.0 MCH 31.3 pg 25.6-32.2 MCHC 32.6 g/dL 32.2-36.0 RDW-CV 13.4 % 11.6-14.4 PLT 267 x10^3/UL 163-400 MPV 8.8 fL Low 9.4-12.4 January# 3.69 x10^3/UL 1.56-6.13 Lymph# 1.69 x10^3/UL 1.18-3.74 Cassia# 0.48 x10^3/UL 0.24-0.82 Eos # 0.2 x10^3/UL 0.0-0.5 Baso # 0.01 x10^3/UL 0.01-0.08 January% 61.0 % 34.0-70.0 Lymph % 27.9 % 20.0-52.0 Cassia% 7.9 % 5.0-12.0 Eos% 2.8 % 0.7-7.0 Baso% 0.2 % 0.1-1.2 Comprehensive Metabolic 12/04/2018 [facility]) Sodium 144 mEq/L 134-149 Prof Potassium 4.3 [...] GFR >60 ml/min/1.73m^ >=60 Lipid Profile 12/04/2018 [facility]) Cholesterol 287 mg/dL High 120-200 Triglycerides 141 mg/dL 30-200 HDL Cholesterol 63 mg/dL 30-85 LDL (Calculated) 196 CALC High 0-129 VLDL Cholesterol 28 mg/dL 0-50 HDL Risk Factor 4.6 CALC High 0.0-4.4 1 [facility] Severe Sepsis and Septic Shock Management Bundle Measure requires all lactic acids initially measuring >2.0 mmol/L be repeated. 2 Because ethnic data is not always [...] immediately to secondary confirmatory testing. Using the [employer] DxI 800 Access Immunoassay systems, the 99th percentile upper reference limit was demonstrated to be < 0.03 ng/mL. 4 Troponin-I testing on Plasma Separator Tubes (PST) has a known false positive rate of 0.20-0.40%. All positive troponins reflex immediately to secondary confirmatory testing. Using the [employer] DxI 800 Access Immunoassay systems, the 99th percentile upper reference limit was demonstrated to be < 0.03 ng/mL. 5 Because ethnic data is not always readily [...] 15-29 5 Kidney failure <15 (or dialysis) 6 Standard intensity warfarin therapeutic range: 2.0-3.0 High intensity warfarin therapeutic range: 2.5-3.5 7 Med Dir: [id number] Procedures Date Code Description Status 05/10/2019 87172 Finger Or Heel Stick Completed 05/08/2019 53208 Finger Or Heel Stick Completed 04/07/2019 87144 Finger Or Heel Stick Completed 03/06/2019 79078 Finger Or Heel Stick Completed 02/14/2019 85743 Finger Or Heel Stick Completed 01/29/2019 04372 Injection Subcutaneous Or Intramuscular Completed 01/15/2019 27236 Finger Or Heel Stick Completed 12/30/2018 58514 Dxa Bone Density Study One Or More Sites Axial Completed Skeleton 12/30/2018 629346841 Bone Mineral Density Test Completed 12/16/2018 99714 Finger Or Heel Stick Completed 11/30/2018 56432 Remove Impact Cerumen Irrigati Completed 07/08/2018 41065678 Mammogram Completed 07/04/2017 58199636 Mammogram Completed 01/03/2017 88058638 Mammogram Completed 01/03/2016 89407932 Mammogram Completed 01/01/2015 93261294 Mammogram Completed 07/14/2014 26294261 Colonoscopy Completed 07/13/2014 38307960 Colonoscopy Completed 12/31/2013 37367149 Mammogram Completed 12/19/2012 91204799 Mammogram Completed 12/28/2011 76707328 Mammogram Completed 12/26/2010 29693392 Mammogram Completed 09/27/2009 78165717 Mammogram Completed 09/25/2008 17666665 Mammogram Completed 10/04/2007 51992152 Mammogram Completed 06/20/2007 86717450 Colonoscopy Completed Medical Devices Description No Information Available Encounters Type Date Location Provider Dx Diagnosis Office Visit 04/22/2019 [facility] Con[facility] R11.2 Nausea with 2:00p eBlle Regalado vomiting, unspecified Office Visit 01/01/2019 [facility] Chelsey Bernal R13.19 Other dysphagia 1:40p Keya Srinivasan E55.9 Vitamin D deficiency, unspecified E78.49 Other hyperlipidemia M81.0 Age-related osteoporosis w/o current pathological fracture Office Visit 11/30/2018 11:30a [facility] Chelsey Bernal H61.23 Impacted Zarina osei M.D. 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 05/17/2019 I82.402 Acute embolism and thombos unsp deep Chelsey Srinivasan M.D. 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 05/10/2019 I82.402 Acute embolism and thombos unsp deep Chelsey Srinivasan M.D. veins of l low extrem 05/08/2019 Z79.01 halfway (current) use of anticoagulants Chelsey Srinivasan M.D. 05/08/2019 I82.402 Acute embolism and thombos unsp deep Chelsey Srinivasan M.D. 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 04/07/2019 I82.402 Acute embolism and thombos unsp deep Chelsey Srinivasan M.D. veins of low extrem 03/06/2019 Z79.01 halfway (current) use of anticoagulants Chelsey Srinivasan M.D. 03/06/2019 I82.402 Acute embolism and thombos unsp deep Chelsey Srinivasan M.D. veins of low extrem 02/14/2019 Z79.01 halfway (current) use of anticoagulants Chelsey Srinivasan M.D. 02/14/2019 I82.402 Acute embolism and thombos unsp deep Chelsey Srinivasan M.D. veins of low extrem 01/29/2019 M81.0 Age-related osteoporosis w/o current Chelsey Srinivasan M.D. pathological fracture 01/15/2019 Z79.01 halfway (current) use of anticoagulants Chelsey Srinivasan M.D. 01/15/2019 I82.402 Acute embolism and thombos unsp deep Chelsey Srinivasan M.D. veins of [facility] extrem 01/01/2019 R13.19 Other dysphagia Chelsey Srinivasan M.D. 01/01/2019 E55.9 Vitamin D deficiency, unspecified Chelsey Srinivasan M.D. 01/01/2019 E78.49 Other hyperlipidemia Chelsey Srinivasan M.D. 01/01/2019 M81.0 Age-related osteoporosis without current Chelsey Srinivasan M.D. pathological fractu 12/30/2018 M81.0 Age-related osteoporosis without current Chelsey Srinivasan M.D. pathological fracture 12/16/2018 Z79.01 halfway (current) use of anticoagulants Chelsey Srinivasan M.D. [...] 11/20/2018 H61.21 Impacted cerumen, right ear Chelsey Srinivasan M.D. 11/20/2018 E55.9 Vitamin D deficiency, unspecified Chelsey Srinivasan M.D. Plan of Treatment Future Appointment(s):06/16/2019 11:30 am - Chelsey Srinivasan M.D. at [facility] Hadyqk6307/02/2019 2:00 pm - Chelsey Srinivasan M.D. at [facility] Quvtdq3405/17/2019 - Ronan Moreno-CZ23 Encounter for immunizationFollow up:Followup:. ( Follow up)R11.2 Nausea with vomiting, unspecifiedNew Labs:Occult Blood #3 Stool , Ordered: 05/17/19R53.1 WeaknessAllComments:Medication Management Patient Understands medications she's taking? Yes No Are there Barriers to Adherence? Yes No Has the patient been asked about herbal supplements and therapies, and OTC meds? Yes No Care Plan1. Patient has been queried about patient's goals/preferences and functional/lifestyle goals at relevant visits. If relevant, describe: na2. Treatment goals as explained to the patient: abovefurther evaluation of sx3. Are there barriers to meeting treatment goals? Yes No If Yes, please describe:4. Self-Management goals as described to the patient: Yes No will review with pcp re ? further eval , referral Functional Status Description No Information Available Mental Status Description No Information Available Referrals Refer to Reason for Referral Status Appt Date Neri Robbins ([facility] - Direct) Dysphagia jw Scheduled 12/17/2018 [address] [place] [address] [phone]
[2019-06-17 19:02] VITALS: BP 133/81
== END 2019-06-17 19:00 | disposition home or self-care (01) ==
LOC: ED 16:52
DX: R11.2 Nausea with vomiting, unspecified (principal); D75.9 Disease of blood and blood-forming organs, unspecified; I95.1 Orthostatic hypotension; M81.0 Age-related osteoporosis without current pathological fracture; C79.31 Secondary malignant neoplasm of brain; Z87.440 Personal history of urinary (tract) infections; Z90.11 Acquired absence of right breast and nipple; Z85.3 Personal history of malignant neoplasm of breast
CPT/HCPCS: 36415; 71046; 80053; 83605; 83735; 84484; 85025; 93005; 96361; 96374; 99282; J2405

== ENCOUNTER 2019-12-02 12:35 | Emergency (ER) | payer BC ==
[2019-12-02] MEDS ORDERED: Ondansetron INJ* 2 MG/ML VIAL IV ONE (12:49)
--- NOTE | 2019-12-02 12:56 | ED ---
GI/ HPI - HPI Summary HPI Summary: This patient is a 64 y/o female presenting to [facility] via EMS for nausea and vomiting. Patient reports she woke up today at around 1000 and felt well. She states she then developed nausea and vomiting. Patient notes she had a couple of episodes of emesis. Denies fever, chills, abd pain, diarrhea, constipation. Denies any chest pain or shortness of breath. Patient took Zofran at home with no improvement. She denies any recent travel. Denies any sick contacts. Patient lives at home alone. PMHx: breast CA 20 years ago s/p lumpectomy and lung CA. Patient is not on chemo for lung CA. Home Medications Medication Instructions Recorded Confirmed Type Calcium Carb/Vitamin D3/Vit K1 1 chw PO DAILY 04/16/19 12/02/19 History [Calcium + D Soft Chewable Tab] Warfarin TAB(*) [Coumadin TAB(*)] 3 mg PO DAILY 04/16/19 12/02/19 History Ondansetron ODT TAB* [Zofran 4 MG 4 mg PO Q6H PRN #10 tab.odt 12/02/19 Rx Odt TAB*] Polyethylene Glycol 3350* [Miralax 17 gm PO DAILY PRN #12 packet 12/02/19 Rx (17 GM DOSE MARK)] Sodium Phosphate ADULT ENEMA* 1 enema AL BEDTIME PRN #1 btl 12/02/19 Rx [Fleet Enema*] - History of Current Complaint Chief Complaint: EDNauseaVomitDiarrh Time Seen by Provider: 12/02/19 12:38 Stated Complaint: NAUSEA PER EMS Hx Obtained From: Patient Onset/Duration: Started Hours Ago, Still Present Timing: Lasting Hours Current Severity: Moderate Pain Intensity: 0 - patient denies pain Associated Signs and Symptoms: Positive: Nausea, Vomiting. Negative: Constipation, Diarrhea, Fever, Chills, Abdominal Pain, Chest Pain, Other: - NEGATIVE: SOB Aggravating Factor(s): Nothing Alleviating Factor(s): Nothing - Additional Pertinent History Primary Care Physician: [id number] - Allergy/Home Medications Allergies/Adverse Reactions: Allergies Allergy/AdvReac Type Severity Reaction Status Date / Time grass pollen Allergy Mild Sneezing Verified 12/02/19 12:45 mold Allergy Mild Sneezing Verified 12/02/19 12:45 Home Medications: Home Medications Calcium Carb/Vitamin D3/Vit K1 [Calcium + D Soft Chewable Tab] 1 chw PO DAILY [History Confirmed 12/02/19] Warfarin TAB(*) [Coumadin TAB(*)] 3 mg PO DAILY 04/16/19 [History Confirmed ] Ondansetron ODT TAB* [Zofran 4 MG Odt TAB*] 4 mg PO Q6H PRN #10 tab.odt [Rx] Polyethylene Glycol 3350* [Miralax (17 GM DOSE MARK)] 17 gm PO DAILY PRN #12 packet 12/02/19 [Rx] Sodium Phosphate ADULT ENEMA* [Fleet Enema*] 1 enema AL BEDTIME PRN #1 btl 12/01 [Rx] PMH/Surg Hx/FS Hx/Imm Hx Endocrine/Hematology History: Reports: Hx Bone Marrow Disease Denies: Hx Diabetes Cardiovascular History: Reports: Hx Hypotension - orthostatic Denies: Hx Hypertension, Hx Pacemaker/ICD Respiratory History: Denies: Hx Asthma History: Reports: Other Problems/Disorders - UTI Denies: Hx Dialysis, Hx Renal Disease Musculoskeletal History: Reports: Hx Osteoporosis, Other Musculoskeletal History - 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 Sensory History: Reports: Hx Contacts or Glasses Denies: Hx Hearing Aid, Hx Hearing Problem Opthamlomology History: Reports: Hx Contacts or Glasses Neurological History: Reports: Other Neuro Impairments/Disorders - right craniatomy 1998, 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 Psychiatric History: Denies: Hx Panic Disorder - Cancer History Cancer Type, Location and Year: 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, BRAIN METS Hx Chemotherapy: Yes - SEVERAL TIMES Hx Radiation Therapy: Yes - SEVERAL TIMES - Surgical History Surgical History: Yes Surgery Procedure, Year, and Place: BRAIN TUMOR REMOVED 1998,RT MASTECTOMY 96, BONE MARROW TRANSPLANT 97, BILATERAL FOOT BUNION REMOVAL,APPENDECTOMY, fluid on brain removed november Infectious Disease History: No Infectious Disease History: Denies: Traveled Outside the [place] in Last 30 Days - Family History Known Family History: Positive: Cardiac Disease, Diabetes, Other - cancer - Social History Alcohol Use: None Hx Substance Use: No Substance Use Type: Reports: None Hx Tobacco Use: No Smoking Status (MU): Never Smoked Tobacco Review of Systems Negative: Fever, Chills Negative: Chest Pain Negative: Shortness Of Breath Positive: Vomiting, Nausea. Negative: Abdominal Pain, Diarrhea, Other - NEGATIVE: constipation All Other Systems Reviewed And Are Negative: Yes Physical Exam - Summary Physical Exam Summary: VITAL SIGNS: Reviewed. GENERAL: Patient is a well-developed and nourished female who is lying comfortable in the stretcher. Patient is not in any acute respiratory distress. HEAD AND FACE: No signs of trauma. No ecchymosis, hematomas or skull depressions. No sinus tenderness. EYES: PERRLA, EOMI x 2, No injected conjunctiva, no nystagmus. EARS: Hearing grossly intact. Ear canals and tympanic membranes are within normal limits. MOUTH: Oropharynx within normal limits. NECK: Supple, trachea is midline, no adenopathy, no JVD, no carotid bruit, no c- spine tenderness, neck with full ROM. CHEST: Symmetric, no tenderness at palpation. S/p right lumpectomy. LUNGS: Clear to auscultation bilaterally. No wheezing or crackles. CVS: Regular rate and rhythm, S1 and S2 present, no murmurs or gallops appreciated. ABDOMEN: Soft, non-tender. No signs of distention. No rebound no guarding, and no masses palpated. Bowel sounds are normal. EXTREMITIES: FROM in all major joints, no edema, no cyanosis or clubbing. NEURO: Alert and oriented x 3. No acute neurological deficits. Speech is normal and follows commands. SKIN: Dry and warm Triage Information Reviewed: Yes Vital Signs On Initial Exam: Initial Vitals Temp Pulse Resp BP Pulse Ox 97.1 F 74 20 118/72 100 12/02/19 12:35 12/02/19 12:35 12/02/19 12:35 12/02/19 12:35 12/02/19 12:35 Vital Signs Reviewed: Yes Procedures - Sedation Patient Received Moderate/Deep Sedation with Procedure: No Diagnostics - Vital Signs Vital Signs Temp Pulse Resp BP Pulse Ox 12/02/19 12:35 97.1 F 74 20 118/72 100 - Laboratory Result Diagrams: 12/02/19 13:20 12/02/19 13:20 Lab Statement: Any lab studies that have been ordered have been reviewed, and results considered in the medical decision making process. - Radiology Abdomen XR Radiology Interpretation Completed By: Radiologist Summary of Radiographic Findings: IMPRESSION: Nonobstructive bowel gas pattern. Large amount of stool throughout the colon. Dr. Ibrahim has reviewed this report. - EKG 1251 Cardiac Rate: NL - at 67 bpm EKG Rhythm: Sinus Rhythm Summary of EKG Findings: EKG at 1251 shows sinus rhythm at a rate of [address] elevations. This EKG was interpreted and reviewed by ED physician. Re-Evaluation - Re-Evaluation First Eval Re-Evaluation Time: 14:51 Comment: Reviewed results with patient. She will be discharged home with follow up from PCP. GIGU Course/Dx - Course Assessment/Plan: This patient is a 64 y/o female presenting to [facility] via EMS for nausea and vomiting. Patient reports she woke up today at around 1000 and felt well. She states she then developed nausea and vomiting. Patient notes she had a couple of episodes of emesis. Denies fever, chills, abd pain, diarrhea, constipation. Denies any chest pain or shortness of breath. Patient took Zofran at home with no improvement. She denies any recent travel. Denies any sick contacts. Patient lives at home alone. PMHx: breast CA 20 years ago s/p lumpectomy and lung CA. Patient is not on chemo for lung CA. In the ED course the patient was placed in a site monitor, IV access was obtained, IV fluids were started. She was given Zofran for nausea and vomiting. Past medical records reviewed. Abdominal x-ray impression: Non-obstructive bowel gas pattern. Large amount of stool throughout the colon. Blood test w/o a significant abnormality except for BUN of 33, creatinine 0.9. Glucose is 105, and troponin is 0.00. I believe her symptoms are secondary to her constipation. In the ED course the patient was given magnesium citrate, lactulose, and MiraLAX. The patient did not have any nausea or vomiting. Therefore, the patient will be discharged home with follow up from her primary care physician. She will be given a prescription for MiraLAX, lactulose, fleet enema. I discussed all the findings and test results with the patient. Patient was instructed to return to the emergency room immediately if any of the symptoms returns or worsens. Plan of care was discussed with the patient, and she understands and agrees. All questions were answered at patient satisfaction. There were no further complaints or concerns. Lung exam before discharge: CTA B/L. Good air exchange. No wheezing or crackles heard. CVS: S1 and S2 present. No murmurs appreciated. Patient is alert and oriented x 3. Patient is hemodynamically stable. Patient will be discharged home with follow up from her PCP in the next 2-3 days. - Diagnoses Provider Diagnoses: Constipation, Dehydration, Nausea and vomiting - Critical Care Time Critical Care Statement: Critical care time is provided exclusive of any time spent performing procedures. Discharge ED - Sign-Out/Discharge Documenting (check all that apply): Patient Departure - Discharge home - Discharge Plan Condition: Stable Disposition: HOME Prescriptions: Ondansetron ODT TAB* [Zofran 4 MG Odt TAB*] 4 mg PO Q6H PRN #10 tab.odt PRN Reason: Nausea Polyethylene Glycol 3350* [Miralax (17 GM DOSE MARK)] 17 gm PO DAILY PRN #12 packet PRN Reason: Constipation Sodium Phosphate ADULT ENEMA* [Fleet Enema*] 1 enema AL BEDTIME PRN #1 btl PRN Reason: Constipation Meds/Orders/Equipment: Home Care: Skilled Needs Location: None Selected Patient Education Materials: Constipation (ED), Acute Nausea and Vomiting (ED) Referrals: Chelsey Srinivasan MD [Primary Care Provider] - Visiting Nurse Shamar, [[employer], APPLICATION, OTHER] - Additional Instructions: FOLLOW UP WITH YOUR PRIMARY CARE PROVIDER IN 2-3 DAYS. RETURN TO THE EMERGENCY DEPARTMENT FOR ANY WORSENING OR NEW SYMPTOMS. - Billing Disposition and Condition Condition: STABLE Disposition: Home - Attestation Statements Document Initiated by Taylor: Yes Documenting Scribe: Blanca Ruiz Provider For Whom Taylor is Documenting (Include Credential): Alexandru Ibrahim MD Scribe Attestation: Blanca Ritter, scribed for Alexandru Ibrahim MD on 12/03/19 at 1224. Scribe Documentation Reviewed: Yes Provider Attestation: The documentation as recorded by the Blanca garcias accurately reflects the service I personally performed and the decisions made by , Alexandru Ibrahim MD Status of Scribe Document: Viewed
[2019-12-02] MEDS ORDERED: NS 0.9% 1000 ML** 1,000 ML IV SCH (13:00)
[2019-12-02 13:32] LABS: ABS Lymphocytes 0.9 10^3/ul (1.0-4.8); ABS Monocytes 0.4 10^3/ul (0-0.8); Eosinophil % 0.7 %; Hematocrit 40 % (35-47); Hemoglobin 13.8 g/dL (12.0-16.0); Lymphocyte % 12.1 %; Mean Corpuscular HGB Conc 34 g/dL (31-36); Mean Corpuscular Hemoglobin 32 pg (27-31); Mean Corpuscular Volume 94 fL (80-97); Mean Platelet Volume 6.8 fL (7.4-10.4); Platelet Count 227 10^3/uL (150-450); Red Blood Count 4.28 10^6 /uL (3.70-4.87); Red Cell Distribution Width 14 % (10-15); White Blood Count 7.3 10^3/uL (3.5-10.8)
[2019-12-02] MEDS ORDERED: Polyethylene Glycol 3350* 17 GM PACKET PO PRN (13:46)
[2019-12-02] MEDS ORDERED: Magnesium CITRATE* 300 ML BTL PO ONE (13:46)
[2019-12-02 13:49] LABS: ALT 13 U/L (7-52); AST 19 U/L (13-39); Albumin 4.2 g/dL (3.2-5.2); Albumin/Globulin Ratio 1.5 (1-3); Alkaline Phosphatase 90 U/L (34-104); Amylase 30 U/L (29-103); Anion Gap 5 mmol/L (2-11); BUN/Creatinine Ratio 33.7 (8-20); Blood Urea Nitrogen 33 mg/dL (6-24); C Reactive Protein 7.58 mg/L (<8.01); CO2 Carbon Dioxide 31 mmol/L (22-32); Calcium 9.1 mg/dL (8.6-10.3); Chloride 102 mmol/L (101-111); EGFR African American 69.4 (>60); EGFR Non-African American 57.3 (>60); Globulin 2.8 g/dL (2-4); Glucose 105 mg/dL (70-100); Magnesium 1.9 mg/dL (1.9-2.7); Potassium 3.9 mmol/L (3.5-5.0); Sodium 138 mmol/L (135-145)
[2019-12-02] MEDS ORDERED: Labetalol IV* 5 MG/ML 20 ML VIAL IV PUSH ONE (14:00)
[2019-12-02 14:58] VITALS: BP 130/80
[2019-12-02 15:12] LABS: Urine Appearance Clear; Urine Bilirubin Negative (Negative); Urine Blood Negative (Negative); Urine Color Straw; Urine Glucose Negative (Negative); Urine Ketones Negative (Negative); Urine Nitrite Negative (Negative); Urine Protein Negative (Negative); Urine Specific Gravity 1.009 (1.010-1.030); Urine Urobilinogen Negative (Negative)
== END 2019-12-02 15:25 | disposition home or self-care (01) ==
LOC: ED 12:35
DX: K59.00 Constipation, unspecified (principal); E86.0 Dehydration; I95.9 Hypotension, unspecified; R11.2 Nausea with vomiting, unspecified; Z79.01 Long term (current) use of anticoagulants; Z79.899 Other long term (current) drug therapy; Z86.2 Personal history of diseases of the blood and blood-forming organs and certain disorders involving the immune mechanism
CPT/HCPCS: 36415; 74019; 80053; 81003; 82150; 83605; 83690; 83735; 84484; 85025; 86140; 93005; 99283; A9270-GY; J2405

== ENCOUNTER 2022-01-11 20:44 | Observation (INO) ==
[2022-01-11] MEDS ORDERED: NS 0.9% 1000 ml BAG 1,000 ML IV ONE ×2 (21:34→21:40)
[2022-01-11 22:03] LABS: ABS Lymphocytes 0.3 10^3/ul (1.0-4.8); ABS Monocytes 0.6 10^3/ul (0-0.8); Hematocrit 42 % (35-47); Hemoglobin 13.8 g/dL (12.0-16.0); Lymphocyte % 3.2 %; Mean Corpuscular HGB Conc 33 g/dL (31-36); Mean Corpuscular Hemoglobin 30 pg (27-31); Mean Corpuscular Volume 92 fL (80-97); Mean Platelet Volume 6.7 fL (7.4-10.4); Platelet Count 201 10^3/uL (150-450); Red Blood Count 4.55 10^6 /uL (3.70-4.87); Red Cell Distribution Width 14 % (10-15); White Blood Count 7.9 10^3/uL (3.5-10.8)
[2022-01-11 22:43] LABS: Albumin 4.3 g/dL (3.2-5.2); Albumin/Globulin Ratio 1.9 (1-3); Calcium 8.9 mg/dL (8.6-10.3); Globulin 2.3 g/dL (2-4); Magnesium 1.9 mg/dL (1.9-2.7); Potassium 3.6 mmol/L (3.5-5.0); Total Bilirubin 1.2 mg/dL (0.2-1.0); Total Protein 6.6 g/dL (6.4-8.9); eGFR CKD-EPI 80.5 (>60)
[2022-01-12 00:32] LABS: Urine Appearance Clear; Urine Bilirubin Negative (Negative); Urine Blood 2+ (Negative); Urine Color Yellow; Urine Glucose Negative (Negative); Urine Ketones Trace (Negative); Urine Nitrite Negative (Negative); Urine Protein Negative (Negative); Urine Specific Gravity 1.009 (1.002-1.030); Urine Urobilinogen Negative (Negative)
[2022-01-12 00:43] LABS: Urine Bacteria Absent (Absent); Urine Red Blood Cell Trace(0-2/hpf) (Absent); Urine Squamous Epithelial Cell Present (Absent); Urine White Blood Cell Trace(0-5/hpf) (Absent)
[2022-01-12] MEDS ORDERED: Magnesium Hydroxide LIQ 30 ML UDC PO PRN (01:30)
[2022-01-12] MEDS ORDERED: Lactated Ringers 1000 ml BAG 1,000 ML IV ONE ×2 (01:43)
[2022-01-12 02:50] LABS: C Reactive Protein 121.48 mg/L (<8.01)
[2022-01-12 03:04] LABS: INR 2.43 (0.86-1.15)
[2022-01-12 05:00] LABS: ABS Lymphocytes 0.4 10^3/ul (1.0-4.8); ABS Monocytes 0.5 10^3/ul (0-0.8); ABS Neutrophils 5.5 10^3/ul (1.5-7.7); Eosinophil % 0.5 %; Hematocrit 37 % (35-47); Hemoglobin 12.1 g/dL (12.0-16.0); Lymphocyte % 6.1 %; Mean Corpuscular HGB Conc 33 g/dL (31-36); Mean Corpuscular Hemoglobin 30 pg (27-31); Mean Corpuscular Volume 92 fL (80-97); Mean Platelet Volume 6.5 fL (7.4-10.4); Platelet Count 178 10^3/uL (150-450); Red Blood Count 3.99 10^6 /uL (3.70-4.87); Red Cell Distribution Width 14 % (10-15); White Blood Count 6.5 10^3/uL (3.5-10.8)
[2022-01-12 05:08] LABS: High Sensitivity Troponin 1 Hr 19 pg/mL (<15)
[2022-01-12 05:46] LABS: Calcium 7.8 mg/dL (8.6-10.3); Potassium 3.5 mmol/L (3.5-5.0); eGFR CKD-EPI 78.2 (>60)
[2022-01-12] MEDS ORDERED: Cyanocobalamin INJ 1,000 MCG/ML VIAL 1 ML VIAL IM ONE (09:09)
[2022-01-12 10:06] LABS: Albumin 3.3 g/dL (3.2-5.2); Albumin/Globulin Ratio 1.6 (1-3); Direct Bilirubin 0.1 mg/dL (0.03-0.18); Globulin 2.1 g/dL (2-4); Indirect Bilirubin 0.7 mg/dL (0.3-1.0); Total Bilirubin 0.8 mg/dL (0.2-1.0); Total Protein 5.4 g/dL (6.4-8.9)
[2022-01-12] MEDS: CALCIUM VITAMIN D3 VITAMIN K PO SCH (12:55)
[2022-01-12] MEDS ORDERED: NS 0.9% 1000 ml BAG 1,000 ML IV ONE (15:25)
[2022-01-13 08:25] LABS: Hematocrit 36 % (35-47); Hemoglobin 12.3 g/dL (12.0-16.0); Mean Corpuscular HGB Conc 35 g/dL (31-36); Mean Corpuscular Hemoglobin 32 pg (27-31); Mean Corpuscular Volume 93 fL (80-97); Mean Platelet Volume 6.8 fL (7.4-10.4); Platelet Count 166 10^3/uL (150-450); Red Blood Count 3.83 10^6 /uL (3.70-4.87); Red Cell Distribution Width 15 % (10-15); White Blood Count 5.7 10^3/uL (3.5-10.8)
[2022-01-13] MEDS ORDERED: Warfarin per PHARMACY **NOTE FOLLOW UP SCH (09:00)
[2022-01-13 09:16] LABS: Phosphorus 1.7 mg/dL (2.5-5.0); Potassium 3.8 mmol/L (3.5-5.0); eGFR CKD-EPI 97.3 (>60)
[2022-01-13] MEDS: CALCIUM VITAMIN D3 VITAMIN K PO SCH (10:57)
[2022-01-13] MEDS ORDERED: Magnesium Sulf 4 GM/100 ML IV 4,000 MG/100 ML BAG IVPB ONE (16:11)
[2022-01-13] MEDS ORDERED: Potassium Chlor 20 meq TAB.ER PO SCH (20:15)
[2022-01-13 21:36] LABS: Calcium 8.6 mg/dL (8.6-10.3); Magnesium 1.9 mg/dL (1.9-2.7); Potassium 4.4 mmol/L (3.5-5.0); eGFR CKD-EPI 94.3 (>60)
[2022-01-14] MEDS ORDERED: Potassium Phosphate IV 15 MMOLE in NS 0.9% 250 ml 250 ML IVPB ONE (00:36)
[2022-01-14] MEDS ORDERED: Sodium Phosphate IV 15 MMOLE in NS 0.9% 250 ml 250 ML IVPB ONE (02:49)
[2022-01-14 05:15] LABS: INR 2.38 (0.86-1.15)
[2022-01-14 06:31] LABS: Calcium 8.5 mg/dL (8.6-10.3); Phosphorus 2.5 mg/dL (2.5-5.0); Potassium 4.2 mmol/L (3.5-5.0); eGFR CKD-EPI 99.2 (>60)
[2022-01-14 07:51] VITALS: BP 125/86
[2022-01-14] MEDS: CALCIUM VITAMIN D3 VITAMIN K PO SCH (09:16)
== END 2022-01-14 09:01 | disposition swing bed (61) ==
LOC: ED 20:44 → EDHOLD 20:44 → SUATTDRO 01-12 01:30 → MED 01-12 06:26
PROVIDERS: ADMIT Internal Medicine; ATTEND Student in an Organized Health Care Education/Training Program

== ENCOUNTER 2022-10-19 17:16 | Inpatient (IN) ==
[2022-10-19 20:16] LABS: Hematocrit 43 % (35-47); Hemoglobin 13.7 g/dL (12.0-16.0); Mean Corpuscular HGB Conc 32 g/dL (31-36); Mean Corpuscular Hemoglobin 30 pg (27-31); Mean Corpuscular Volume 94 fL (80-97); Mean Platelet Volume 6.8 fL (7.4-10.4); Platelet Count 311 10^3/uL (150-450); Red Blood Count 4.55 10^6 /uL (3.70-4.87); Red Cell Distribution Width 14 % (10-15); White Blood Count 12.7 10^3/uL (3.5-10.8)
[2022-10-19 20:21] LABS: Urine Appearance Cloudy; Urine Bilirubin Negative (Negative); Urine Blood 1+ (Negative); Urine Color Straw; Urine Glucose Negative (Negative); Urine Ketones 1+ (Negative); Urine Nitrite Negative (Negative); Urine Protein Negative (Negative); Urine Specific Gravity 1.008 (1.002-1.030); Urine Urobilinogen Negative (Negative)
[2022-10-19 20:28] LABS: Urine Bacteria Absent (Absent); Urine Red Blood Cell Trace(0-2/hpf) (Absent); Urine Squamous Epithelial Cell Present (Absent); Urine White Blood Cell 1+(6-10/hpf) (Absent)
[2022-10-19 20:39] LABS: Albumin 4.6 g/dL (3.2-5.2); Albumin/Globulin Ratio 1.8 (1-3); Calcium 9.7 mg/dL (8.6-10.3); Creatinine, Serum 1.03 mg/dL (0.51-0.95); Globulin 2.5 g/dL (2-4); Potassium 3.6 mmol/L (3.5-5.0); Total Bilirubin 0.6 mg/dL (0.2-1.0); Total Protein 7.1 g/dL (6.4-8.9)
[2022-10-19] MEDS ORDERED: Iodixanol (CONTRAST) 320 MG/ML 100 ML SDV IV ONE (21:59)
[2022-10-19] MEDS ORDERED: Enoxaparin 40 MG/0.4 ML SYR SUBCUT SCH (23:45)
[2022-10-20 00:25] LABS: Activated Partial Thrombo Time 39.9 seconds (26.0-38.0); INR 2.24 (0.88-1.18)
[2022-10-20] MEDS ORDERED: Lactated Ringers 1000 ml BAG 1,000 ML IV ONE (06:25)
[2022-10-20] MEDS ORDERED: Warfarin per PHARMACY **NOTE FOLLOW UP SCH (07:00)
[2022-10-20] MEDS: Lidocaine PATCH 5% PATCH TRANSDERM SCH ×2 (08:24→08:50)
[2022-10-20 10:18] LABS: ABS Lymphocytes 1.1 10^3/ul (1.0-4.8); ABS Monocytes 0.8 10^3/ul (0-0.8); ABS Neutrophils 6.1 10^3/ul (1.5-7.7); Eosinophil % 0.5 %; Hematocrit 35 % (35-47); Hemoglobin 11.5 g/dL (12.0-16.0); Lymphocyte % 13.2 %; Mean Corpuscular HGB Conc 33 g/dL (31-36); Mean Corpuscular Hemoglobin 31 pg (27-31); Mean Corpuscular Volume 93 fL (80-97); Mean Platelet Volume 6.8 fL (7.4-10.4); Platelet Count 231 10^3/uL (150-450); Red Blood Count 3.74 10^6 /uL (3.70-4.87); Red Cell Distribution Width 14 % (10-15)
[2022-10-20 11:02] LABS: HDL Cholesterol 59.3 mg/dL
[2022-10-20 11:03] LABS: Albumin 3.4 g/dL (3.2-5.2); Albumin/Globulin Ratio 1.8 (1-3); C Reactive Protein 41.38 mg/L (<8.01); Calcium 9.1 mg/dL (8.6-10.3); Creatinine, Serum 0.84 mg/dL (0.51-0.95); Globulin 1.9 g/dL (2-4); Total Bilirubin 0.6 mg/dL (0.2-1.0); Total Protein 5.3 g/dL (6.4-8.9); eGFR CKD-EPI 76.6 (>60)
[2022-10-21 05:54] LABS: INR 2.3 (0.88-1.18)
[2022-10-21 05:57] LABS: ABS Eosinophils 0.2 10^3/ul (0-0.6); ABS Lymphocytes 1.5 10^3/ul (1.0-4.8); ABS Monocytes 0.6 10^3/ul (0-0.8); ABS Neutrophils 4.3 10^3/ul (1.5-7.7); Eosinophil % 3.1 %; Hematocrit 33 % (35-47); Hemoglobin 11.1 g/dL (12.0-16.0); Lymphocyte % 22.9 %; Mean Corpuscular HGB Conc 34 g/dL (31-36); Mean Corpuscular Hemoglobin 32 pg (27-31); Mean Corpuscular Volume 92 fL (80-97); Mean Platelet Volume 6.7 fL (7.4-10.4); Platelet Count 225 10^3/uL (150-450); Red Blood Count 3.54 10^6 /uL (3.70-4.87); Red Cell Distribution Width 14 % (10-15); White Blood Count 6.6 10^3/uL (3.5-10.8)
[2022-10-21 06:25] LABS: Calcium 8.5 mg/dL (8.6-10.3); Creatinine, Serum 0.71 mg/dL (0.51-0.95); Potassium 3.9 mmol/L (3.5-5.0); eGFR CKD-EPI 93.7 (>60)
[2022-10-21] MEDS: Lidocaine PATCH 5% PATCH TRANSDERM SCH (09:05)
[2022-10-22] MEDS: Lidocaine PATCH 5% PATCH TRANSDERM SCH (09:37)
[2022-10-22 14:02] LABS: INR 2.6 (0.88-1.18)
[2022-10-23 06:57] LABS: INR 3.11 (0.88-1.18)
[2022-10-23] MEDS: Lidocaine PATCH 5% PATCH TRANSDERM SCH (09:01)
[2022-10-23] MEDS ORDERED: Lidocaine PATCH 5% PATCH TRANSDERM SCH (14:30)
[2022-10-23 15:00] VITALS: BP 111/63
== END 2022-10-23 18:38 | disposition home or self-care (01) | DRG 74 ==
LOC: ED 17:16 → SUATTDRO 23:53 → EDHOLD 23:53 → MEDTELE 10-20 17:12
PROVIDERS: ADMIT Student in an Organized Health Care Education/Training Program; ATTEND Internal Medicine